=== PATIENT | male | born 1955 | race Hispanic/Latino ===

== ENCOUNTER 2018-09-07 18:02 | Inpatient (IN) | payer OTHER ==
[~2018-09-07] VITALS: Ht 165.1 cm; Wt 87.8 kg
[2018-09-07 18:35] LABS: BASOPHILS % (AUTO) 0.6 % (0.0-5.0); LYMPHOCYTES % (AUTO) 37.4 % (21.0-51.0); MEAN CORPUSCULAR HEMOGLOBIN 32.3 pg (27.0-33.0); MEAN CORPUSCULAR HGB CONC 33.4 g/dL (32.0-36.0); MEAN CORPUSCULAR VOLUME 96.7 fL (79-99); MONOCYTES % (AUTO) 11.4 % (3.0-13.0); NEUTROPHILS % (AUTO) 48.6 % (40.0-77.0); NUCLEATED RED BLOOD CELLS 0.1 % (0.0-0.19); PLATELET COUNT (AUTO) 110 K/uL (130-400); RED BLOOD CELL COUNT(AUTO) 3.41 MIL/uL (4.50-6.20); RED CELL DISTRIBUTION WIDTH 15.6 % (11.0-15.5); WHITE BLOOD COUNT (AUTO) 6.2 K/uL (4.8-10.8)
[2018-09-07 18:43] LABS: INR 1.48 (0.85-1.15); PARTIAL THROMBOPLASTIN TIME 30.3 SEC (26.3-35.5); PROTHROMBIN TIME 15.4 SEC (9.6-11.6)
[2018-09-07 18:46] LABS: ACETONE,BLOOD NEGATIVE (NEGATIVE)
[2018-09-07 18:51] LABS: CARBON DIOXIDE 26 mmol/L (21-32); CHLORIDE 101 mmol/L (101-111); CREATININE 0.7 mg/dL (0.5-1.5); GLOMERULAR FILTR. RATE CALC 122 mL/min (>60); GLUCOSE,RANDOM 116 mg/dL (70-105); POTASSIUM 3.6 mmol/L (3.5-5.1); SODIUM SERUM 136 mmol/L (136-145); UREA NITROGEN, BLOOD 5 mg/dL (7-18)
[2018-09-07 18:55] LABS: ALANINE AMINOTRANSFERASE 30 U/L (12-78); ALBUMIN 2.2 g/dL (3.5-5.0); ALCOHOL, BLOOD < 3 mg/dL (0-10); AMMONIA 53 umol/L (11-32); ASPARTATE AMINOTRANSFERASE 60 U/L (10-37); BILIRUBIN,TOTAL 2.4 mg/dL (0.2-1.0); TOTAL PROTEIN, SERUM 6.7 g/dL (6.0-8.3)
[2018-09-07 19:08] LABS: APPEARANCE,URINE Clear (CLEAR); BILIRUBIN,URINE Small (NEGATIVE); COLOR,URINE Dark Yellow (YELLOW); GLUCOSE, URINE (UA) Negative (NEGATIVE); KETONES,URINE 15 mg/dL (NEGATIVE); LEUKOCYTE ESTERASE ,URINE Trace (NEGATIVE); NITRATE,URINE Negative (NEGATIVE); OCCULT BLOOD,URINE Negative (NEGATIVE); PROTEIN,URINE Negative (NEGATIVE)
[2018-09-07 19:16] LABS: AMPHET/METH SCREEN,URINE NEGATIVE (NEGATIVE); BARBITURATE SCREEN, URINE NEGATIVE (NEGATIVE); BENZODIAZEPINES SCREEN,URINE NEGATIVE (NEGATIVE); CANNABINOID SCREEN,URINE NEGATIVE (NEGATIVE); COCAINE SCREEN,URINE NEGATIVE (NEGATIVE); OPIATE SCREEN,URINE NEGATIVE (NEGATIVE); PHENCYCLIDINE SCREEN,URINE NEGATIVE (NEGATIVE)
[2018-09-07 19:27] LABS: BACTERIA,URINE None Seen /HPF (None Seen); CALCIUM OXALATE CRYSTALS,UR Moderate /LPF (None Seen); MUCUS,URINE Moderate LPF (None Seen); RBC,URINE None Seen /HPF (0-1); SQUAMOUS EPITHELIAL CELL,UR 0-2 /HPF (0-2); WBC,URINE 0-1 /HPF (0-1)
[2018-09-07] MEDS ORDERED: ONDANSETRON HCL 4 MG/2 ML VIAL IV PRN (21:15)
[2018-09-07] MEDS ORDERED: ALBUTEROL SULFATE 0.083% 2.5 MG/3 ML INH IH PRN (21:15)
[2018-09-07 22:25] VITALS: BP 138/89
[2018-09-07] MEDS ORDERED: ALBUTEROL SULFATE 0.083% 2.5 MG/3 ML INH IH ONE (23:34)
[2018-09-07] MEDS ORDERED: ONDANSETRON HCL 4 MG/2 ML VIAL ONE (23:40)
[2018-09-07] MEDS ORDERED: MORPHINE SULFATE 4 MG/1ML SYG ONE (23:41)
[2018-09-08] VITALS (15 sets, daily range): BP systolic 98–115; BP diastolic 57–77
[2018-09-08] MEDS: FAMOTIDINE/PF 20 MG/2 ML VIAL IV SCH ×2 (08:36→21:06)
[2018-09-08] MEDS: FUROSEMIDE 10 MG/ML 4ML VIAL IVP SCH ×2 (08:36→21:06)
[2018-09-08] MEDS: ENOXAPARIN SODIUM 30 MG/0.3 ML SQ SCH (08:37)
[2018-09-08] MEDS: LACTULOSE 20 GM/30 ML UDCUP PO SCH ×2 (08:37→21:06)
[2018-09-08] MEDS ORDERED: LORAZEPAM 2 MG/ML 1 ML VIAL IVP PRN ×2 (12:15)
[2018-09-08] MEDS ORDERED: CHLORDIAZEPOXIDE HCL 25 MG CAP PO PRN ×2 (12:15)
[2018-09-08] MEDS ORDERED: ALBUMIN (HUMAN) 25% 200 ML IV ONE (18:00)
[2018-09-08] MEDS ORDERED: MORPHINE SULFATE 4 MG/1ML SYG ONE (21:09)
[2018-09-08] MEDS: MORPHINE SULFATE 2 MG/ML 1ML SYG IV PRN (21:12)
[2018-09-09 03:25] VITALS: BP 115/69
[2018-09-09 04:51] LABS: BASOPHILS % (AUTO) 0.5 % (0.0-5.0); EOSINOPHILS % (AUTO) 4.8 % (0.0-8.0); HEMATOCRIT 29.7 % (42-54); LYMPHOCYTES % (AUTO) 41.3 % (21.0-51.0); MEAN CORPUSCULAR HGB CONC 33.5 g/dL (32.0-36.0); MEAN CORPUSCULAR VOLUME 98.5 fL (79-99); MONOCYTES % (AUTO) 9.7 % (3.0-13.0); NEUTROPHILS % (AUTO) 43.7 % (40.0-77.0); NUCLEATED RED BLOOD CELLS 0.1 % (0.0-0.19); PLATELET COUNT (AUTO) 85 K/uL (130-400); RED BLOOD CELL COUNT(AUTO) 3.02 MIL/uL (4.50-6.20); RED CELL DISTRIBUTION WIDTH 15.9 % (11.0-15.5); WHITE BLOOD COUNT (AUTO) 3.9 K/uL (4.8-10.8)
[2018-09-09 05:09] LABS: CREATININE 0.7 mg/dL (0.5-1.5)
[2018-09-09 05:14] LABS: POTASSIUM 3.1 mmol/L (3.5-5.1)
[2018-09-09] MEDS ORDERED: BENZONATATE 100 MG CAPSULE PO PRN (07:45)
[2018-09-09] MEDS ORDERED: POTASSIUM CHLORIDE 10% ELIXIR 20 MEQ/15 ML UDCUP PO PRN (07:45)
[2018-09-09] MEDS ORDERED: POTASSIUM CHLORIDE 10MEQ/100ML 100 ML IV PRN (07:45)
[2018-09-09] MEDS ORDERED: LIDOCAINE HCL-MPF 1% 2ML VIAL IVP PRN (07:45)
[2018-09-09 08:00] VITALS: BP 117/71
[2018-09-09] MEDS: ENOXAPARIN SODIUM 30 MG/0.3 ML SQ SCH (09:00)
[2018-09-09 11:00] VITALS: BP 101/63
[2018-09-09] MEDS: FAMOTIDINE/PF 20 MG/2 ML VIAL IV SCH ×2 (11:12→20:35)
[2018-09-09] MEDS: FUROSEMIDE 10 MG/ML 4ML VIAL IVP SCH ×2 (11:12→20:35)
[2018-09-09] MEDS: POTASSIUM CHLORIDE 20 MEQ ERTAB PO PRN ×2 (11:12→20:36)
[2018-09-09] MEDS: LACTULOSE 20 GM/30 ML UDCUP PO SCH ×2 (11:12→20:35)
[2018-09-09 16:00] VITALS: BP 107/59
[2018-09-09 20:00] VITALS: BP 119/72
[2018-09-09] MEDS ORDERED: MORPHINE SULFATE 4 MG/1ML SYG ONE (20:49)
[2018-09-09] MEDS: MORPHINE SULFATE 2 MG/ML 1ML SYG IV PRN (20:50)
[2018-09-09 23:55] VITALS: BP 108/69
[2018-09-10 04:00] VITALS: BP 119/75
[2018-09-10 05:30] LABS: BASOPHILS % (AUTO) 0.5 % (0.0-5.0); EOSINOPHILS % (AUTO) 5.2 % (0.0-8.0); LYMPHOCYTES % (AUTO) 44.8 % (21.0-51.0); MEAN CORPUSCULAR HEMOGLOBIN 33.9 pg (27.0-33.0); MEAN CORPUSCULAR HGB CONC 34.4 g/dL (32.0-36.0); MEAN CORPUSCULAR VOLUME 98.8 fL (79-99); MONOCYTES % (AUTO) 12.2 % (3.0-13.0); NEUTROPHILS % (AUTO) 37.3 % (40.0-77.0); PLATELET COUNT (AUTO) 106 K/uL (130-400); RED BLOOD CELL COUNT(AUTO) 3.14 MIL/uL (4.50-6.20); RED CELL DISTRIBUTION WIDTH 15.7 % (11.0-15.5); WHITE BLOOD COUNT (AUTO) 4.5 K/uL (4.8-10.8)
[2018-09-10 05:42] LABS: INR 1.61 (0.85-1.15); PROTHROMBIN TIME 16.7 SEC (9.6-11.6)
[2018-09-10 05:45] LABS: CREATININE 0.8 mg/dL (0.5-1.5)
[2018-09-10 05:50] LABS: POTASSIUM 2.8 mmol/L (3.5-5.1)
[2018-09-10] MEDS: POTASSIUM CHLORIDE 20 MEQ ERTAB PO PRN ×4 (06:44→17:04)
[2018-09-10] MEDS ORDERED: POTASSIUM CHLORIDE 20MEQ/100ML 100 ML IV ONE (06:46)
[2018-09-10] MEDS ORDERED: LIDOCAINE HCL MPF 1% 5ML VIAL ONE (07:26)
[2018-09-10 07:31] LABS: HEPATITIS A ANTIBODY IGM Negative (Negative); HEPATITIS B CORE IGM Negative (Negative); HEPATITIS Bs ANTIGEN SCREEN P Negative (Negative)
[2018-09-10] MEDS: LACTULOSE 20 GM/30 ML UDCUP PO SCH (07:50)
[2018-09-10] MEDS: FAMOTIDINE/PF 20 MG/2 ML VIAL IV SCH (07:50)
[2018-09-10] MEDS: FUROSEMIDE 10 MG/ML 4ML VIAL IVP SCH (07:51)
[2018-09-10] MEDS: ENOXAPARIN SODIUM 30 MG/0.3 ML SQ SCH (07:54)
[2018-09-10 08:00] VITALS: BP 112/67
[2018-09-10] MEDS ORDERED: MORPHINE SULFATE 4 MG/1ML SYG ONE ×2 (10:08→10:13)
[2018-09-10] MEDS: MORPHINE SULFATE 2 MG/ML 1ML SYG IV PRN (11:09)
[2018-09-10 12:00] VITALS: BP 107/66
[2018-09-10 16:22] VITALS: BP 112/67
== END 2018-09-10 19:00 | disposition home or self-care (01) | DRG 641 ==
LOC: EDH 18:02 → EDHIP 18:03 → 4CH 21:11
PROVIDERS: ADMIT Internal Medicine; ATTEND Internal Medicine
PROC: 3E02340 Introduction of Influenza Vaccine into Muscle, Percutaneous Approach (ICD-10-PCS; 2018-09-07)
PROC: 0W9G30Z Drainage of Peritoneal Cavity with Drainage Device, Percutaneous Approach (ICD-10-PCS; principal; 2018-09-10)
DX: E87.70 Fluid overload, unspecified (principal); R18.8 Other ascites; R06.01 Orthopnea; Z23 Encounter for immunization
CPT/HCPCS: 36415; 49083; 71045; 76705; 80048; 80053; 80061; 80074; 80305; 81001; 82009; 82140; 84132; 85025; 85610; 85730; 93005; 93970; 94640; 94664; G0378; G0480; J1650; J1940; J2270; J2405; J3480; J3490; P9046; Q2035

== ENCOUNTER 2018-10-28 19:31 | Inpatient (IN) | payer OTHER ==
[~2018-10-28] VITALS: Ht 165.1 cm; Wt 92.1 kg
[2018-10-28 20:42] LABS: EOSINOPHILS % (AUTO) 7.6 % (0.0-8.0); HEMATOCRIT 33.8 % (42-54); LYMPHOCYTES % (AUTO) 36.8 % (21.0-51.0); MEAN CORPUSCULAR HEMOGLOBIN 31.1 pg (27.0-33.0); MEAN CORPUSCULAR HGB CONC 33.6 g/dL (32.0-36.0); MEAN CORPUSCULAR VOLUME 92.7 fL (79-99); MONOCYTES % (AUTO) 13.5 % (3.0-13.0); NEUTROPHILS % (AUTO) 41.1 % (40.0-77.0); NUCLEATED RED BLOOD CELLS 0.1 % (0.0-0.19); PLATELET COUNT (AUTO) 147 K/uL (130-400); RED BLOOD CELL COUNT(AUTO) 3.64 MIL/uL (4.50-6.20); RED CELL DISTRIBUTION WIDTH 17.4 % (11.0-15.5); WHITE BLOOD COUNT (AUTO) 5.2 K/uL (4.8-10.8)
[2018-10-28 20:49] LABS: INR 1.39 (0.85-1.15); PARTIAL THROMBOPLASTIN TIME 30.6 SEC (26.3-35.5); PROTHROMBIN TIME 14.5 SEC (9.6-11.6)
[2018-10-28 20:50] LABS: APPEARANCE,URINE Clear (CLEAR); BILIRUBIN,URINE Small (NEGATIVE); COLOR,URINE Dark Yellow (YELLOW); GLUCOSE, URINE (UA) Negative (NEGATIVE); KETONES,URINE Trace mg/dL (NEGATIVE); LEUKOCYTE ESTERASE ,URINE Trace (NEGATIVE); NITRATE,URINE Negative (NEGATIVE); OCCULT BLOOD,URINE Negative (NEGATIVE); PROTEIN,URINE Negative (NEGATIVE)
[2018-10-28 20:51] LABS: CARBON DIOXIDE 28 mmol/L (21-32); CHLORIDE 100 mmol/L (101-111); CREATININE 0.9 mg/dL (0.5-1.5); GLOMERULAR FILTR. RATE CALC 91 mL/min (>60); GLUCOSE,RANDOM 114 mg/dL (70-105); POTASSIUM 3.7 mmol/L (3.5-5.1); SODIUM SERUM 135 mmol/L (136-145); UREA NITROGEN, BLOOD 12 mg/dL (7-18)
[2018-10-28 20:57] LABS: AMPHET/METH SCREEN,URINE NEGATIVE (NEGATIVE); BARBITURATE SCREEN, URINE NEGATIVE (NEGATIVE); BENZODIAZEPINES SCREEN,URINE NEGATIVE (NEGATIVE); CANNABINOID SCREEN,URINE NEGATIVE (NEGATIVE); COCAINE SCREEN,URINE NEGATIVE (NEGATIVE); OPIATE SCREEN,URINE NEGATIVE (NEGATIVE); PHENCYCLIDINE SCREEN,URINE NEGATIVE (NEGATIVE)
[2018-10-28 20:57] LABS: ALANINE AMINOTRANSFERASE 22 U/L (12-78); ALBUMIN 2.2 g/dL (3.5-5.0); ALCOHOL, BLOOD < 3 mg/dL (0-10); ASPARTATE AMINOTRANSFERASE 52 U/L (10-37); BILIRUBIN,TOTAL 2.2 mg/dL (0.2-1.0); LIPASE 335 U/L (114-286); TOTAL PROTEIN, SERUM 7.1 g/dL (6.0-8.3)
[2018-10-28 21:00] LABS: B-TYPE NATRIURETIC PEPTIDE 24 pg/mL (0-100)
[2018-10-28 21:07] LABS: BACTERIA,URINE Few /HPF (None Seen); MUCUS,URINE Many LPF (None Seen); RBC,URINE None Seen /HPF (0-1); WBC,URINE 0-1 /HPF (0-1)
[2018-10-29] VITALS (11 sets, daily range): BP systolic 85–120; BP diastolic 48–78
[2018-10-29] MEDS ORDERED: ACETAMINOPHEN 325 MG TAB PO PRN
[2018-10-29] MEDS ORDERED: MORPHINE SULFATE 2 MG/ML 1ML SYG IV PRN
[2018-10-29] MEDS ORDERED: ONDANSETRON HCL 4 MG/2 ML VIAL IV PRN
[2018-10-29] MEDS: ALBUTEROL SULFATE 0.083% 2.5 MG/3 ML INH IH SCH ×4 (00:16→18:50)
--- NOTE | 2018-10-29 02:35 | NUR ---
ADMISSION. PT ADMITTED FROM ER INTO ROOM 418. PT AWAKE, ALERT AND RESPONSIVE. NO C/O SOB, PAIN OR DISCOMFORT AT THIS TIME. PT ABLE TO AMBULATE FROM STRETCHER INTO BED, AT BEDSIDE. PT AND ORIENTED TO ROOM, CALL AMARO WITHIN REACH, BED IN LOWEST POSITION. Addendum: 10/29/18 at 0327 by LEIGH ANN GUILLORY RN Amended: Links added.
[2018-10-29 07:40] LABS: INR 1.43 (0.85-1.15); PARTIAL THROMBOPLASTIN TIME 30.9 SEC (26.3-35.5); PROTHROMBIN TIME 14.9 SEC (9.6-11.6)
[2018-10-29] MEDS: ENOXAPARIN SODIUM 40 MG/0.4 ML SYRINGE SQ SCH ×2 (08:34→20:55)
[2018-10-29] MEDS: FUROSEMIDE 10 MG/ML 4ML VIAL IVP SCH ×2 (08:37→20:45)
[2018-10-29] MEDS: FAMOTIDINE/PF 20 MG/2 ML VIAL IV SCH ×2 (08:37→20:46)
[2018-10-29] MEDS ORDERED: LIDOCAINE HCL 1% 20 ML VIAL ONE (09:14)
[2018-10-29] MEDS ORDERED: ALBUMIN (HUMAN) 25% 200 ML IV ONE (09:56)
--- NOTE | 2018-10-29 10:30 | NUR ---
U/S GD PARACENTESIS PROCEDURE PERFORMED BY DR Kristen SANTOS. PUNCTURE SITE RLQ AND TOTAL REMOVED 14 LITERS OF CLOUDY YELLOW FLUID. END OF PROCEDURE AT 1015. CATHETER REMOVED AND DRESSING APPLIED. REPORT GIVEN TO Marvin NUNN RN AND PATIENT TRANSPORTED TO [facility] VIA BED AT 1030.
[2018-10-29] MEDS ORDERED: METHYLPREDNISOLONE SOD SUCC 125MG/2ML VIAL ONE (17:35)
[2018-10-30] VITALS (7 sets, daily range): BP systolic 95–114; BP diastolic 56–67
[2018-10-30] MEDS: ALBUTEROL SULFATE 0.083% 2.5 MG/3 ML INH IH SCH ×4 (00:03→19:27)
[2018-10-30 04:50] LABS: BASOPHILS % (AUTO) 1.1 % (0.0-5.0); EOSINOPHILS % (AUTO) 7.3 % (0.0-8.0); LYMPHOCYTES % (AUTO) 47.3 % (21.0-51.0); MEAN CORPUSCULAR HEMOGLOBIN 31.3 pg (27.0-33.0); MEAN CORPUSCULAR HGB CONC 33.5 g/dL (32.0-36.0); MEAN CORPUSCULAR VOLUME 93.3 fL (79-99); MONOCYTES % (AUTO) 10.8 % (3.0-13.0); NEUTROPHILS % (AUTO) 33.5 % (40.0-77.0); PLATELET COUNT (AUTO) 129 K/uL (130-400); RED BLOOD CELL COUNT(AUTO) 3.11 MIL/uL (4.50-6.20); RED CELL DISTRIBUTION WIDTH 17.8 % (11.0-15.5)
[2018-10-30 05:02] LABS: CREATININE 0.9 mg/dL (0.5-1.5); POTASSIUM 3.6 mmol/L (3.5-5.1)
[2018-10-30] MEDS: ENOXAPARIN SODIUM 40 MG/0.4 ML SYRINGE SQ SCH (09:00)
[2018-10-30] MEDS: FUROSEMIDE 10 MG/ML 4ML VIAL IVP SCH ×2 (09:00→20:50)
[2018-10-30] MEDS: FAMOTIDINE/PF 20 MG/2 ML VIAL IV SCH ×2 (10:22→20:49)
--- NOTE | 2018-10-30 17:15 | NUR ---
NINA WOOD DONE WITH FAMILY EMEMBER AT B/SIDE, [place] CITIZEN SPEAKING, AAO X3, STATES LIVES ALONE, NO DME, PLAN IS HOME, ASKED PT IAM [place], [facility] 'ZACH DAMICO DECLINED ME BECAUSE I DO NOT HAVE MEDICIAD' CM TO FOLLOW NEEDED, ANTICIPATE DC HOME Addendum: 10/30/18 at 2025 by SMITH PARKS RN CM Amended: Links added.
[2018-10-31] VITALS (9 sets, daily range): BP systolic 93–110; BP diastolic 57–69
[2018-10-31] MEDS: ALBUTEROL SULFATE 0.083% 2.5 MG/3 ML INH IH SCH ×3 (00:18→13:45)
[2018-10-31 04:32] LABS: HEMATOCRIT 29.3 % (42-54); MEAN CORPUSCULAR HEMOGLOBIN 31.8 pg (27.0-33.0); MEAN CORPUSCULAR HGB CONC 33.9 g/dL (32.0-36.0); MEAN CORPUSCULAR VOLUME 93.9 fL (79-99); NUCLEATED RED BLOOD CELLS 0.1 % (0.0-0.19); PLATELET COUNT (AUTO) 121 K/uL (130-400); RED BLOOD CELL COUNT(AUTO) 3.12 MIL/uL (4.50-6.20); RED CELL DISTRIBUTION WIDTH 17.6 % (11.0-15.5); WHITE BLOOD COUNT (AUTO) 4.8 K/uL (4.8-10.8)
[2018-10-31 04:43] LABS: INR 1.51 (0.85-1.15); PARTIAL THROMBOPLASTIN TIME 31.5 SEC (26.3-35.5); PROTHROMBIN TIME 15.7 SEC (9.6-11.6)
[2018-10-31 04:44] LABS: BILIRUBIN,TOTAL 1.2 mg/dL (0.2-1.0); CREATININE 0.9 mg/dL (0.5-1.5); POTASSIUM 3.6 mmol/L (3.5-5.1); TOTAL PROTEIN, SERUM 5.7 g/dL (6.0-8.3)
[2018-10-31] MEDS: FAMOTIDINE/PF 20 MG/2 ML VIAL IV SCH (08:44)
[2018-10-31] MEDS: FUROSEMIDE 10 MG/ML 4ML VIAL IVP SCH (08:44)
[2018-10-31] MEDS ORDERED: ENOXAPARIN SODIUM 30 MG/0.3 ML SQ SCH (09:00)
[2018-10-31] MEDS ORDERED: ALBUMIN (HUMAN) 25% 200 ML IV SCH (12:15)
--- NOTE | 2018-10-31 12:15 | NUR ---
U/S GD PARACENTESIS PROCEDURE PERFORMED BY DR Kristen SANTOS. PUNCTURE SITE RLQ AND TOTAL REMOVED 6 LITERS OF CLOUDY YELLOW FLUID. END OF PROCEDURE AT 1015. CATHETER REMOVED AND DRESSING APPLIED. REPORT GIVEN TO Shannon VU RN AND PATIENT TRANSPORTED TO [facility] VIA BED AT 1215. SPECIMEN SENT TO LAB
[2018-10-31 12:56] LABS: APPEARANCE BODY FLUID CLEAR (CLEAR); COLOR,BODY FLUID YELLOW (LT YELLOW); SPECIMENTYPE,BODY FLUID ASCITES; TOTAL VOLUME,BODY FLUID 6000 mL
[2018-10-31 12:57] LABS: BODY FLUID RBC 209 /cu. mm.; BODY FLUID WBC 143 /cu. mm.
[2018-10-31] MEDS ORDERED: LACTULOSE 20 GM/30 ML UDCUP PO SCH (13:00)
[2018-10-31 13:07] LABS: BF LYMPHOCYTE 14 %; BF MESOTHELIAL 2 %; BF MONOCYTE 15 %
[2018-10-31] MEDS ORDERED: LACT10SO32 PO (16:00)
--- NOTE | 2018-10-31 16:22 | NUR ---
As per admission database, pt rec'd flu shot in Aug 2018. Addendum: 10/31/18 at 1628 by TY VU RN RN Amended: Links added.
--- NOTE | 2018-10-31 17:15 | NUR ---
Discharge teaching completed with pt and family at side. Emphasis on dx, s/s to monitor for, when to seek emergency care vs dial 911. Emphasized importance of establishing self with a PCP for general care; needs to be seen within 3 days. Also emphasized importance of requesting referral to GI for care of cirrhosis. Discussed fall precautions, bleeding precautions. Instructed pt to keep dressing to ruq paracentesis site clean, dry, and intact; may remove in 72 hours. Written rx for lactulose given to pt. Discussed purpose, route, dose, and frequency of treatment, as well as side effects, adverse effects, and importance of taking medication exactly as prescribed PIV removed, tip intact. Dressed with sterile 2x2 and tape after hemostasis achieved. Pt wheeled to front lobby by [facility] staff for transport home via private vehicle. Pt in stable condition at time of discharge.
== END 2018-10-31 17:25 | disposition home or self-care (01) | DRG 432 ==
LOC: EDH 19:31 → OBSVTOIN 19:32 → EDHIP 19:32 → 4CH 10-29 01:49
PROVIDERS: ADMIT Internal Medicine; ATTEND Internal Medicine
PROC: 0W9G3ZZ Drainage of Peritoneal Cavity, Percutaneous Approach (ICD-10-PCS; principal; 2018-10-29)
PROC: 0W9G3ZZ Drainage of Peritoneal Cavity, Percutaneous Approach (ICD-10-PCS; 2018-10-31)
DX: K74.60 Unspecified cirrhosis of liver (principal); E43 Unspecified severe protein-calorie malnutrition; R18.8 Other ascites; E87.1 Hypo-osmolality and hyponatremia; Z68.33 Body mass index [BMI] 33.0-33.9, adult
CPT/HCPCS: 36415; 49083; 71045; 80048; 80053; 80305; 81001; 83690; 83880; 84484; 85025; 85027; 85610; 85730; 87071; 87205; 89051; 93005; 93970; 94640; 94664; 96365; G0378; G0480; J1650; J1940; J2930; J3490; P9046

== ENCOUNTER 2018-11-20 14:23 | Inpatient (IN) | payer OTHER ==
[~2018-11-20] VITALS: Ht 165.1 cm; Wt 94.6 kg
[~2018-11-20 14:23] MED LIST: LACT10SO32 PO
[2018-11-20 15:12] LABS: APPEARANCE,URINE Clear (CLEAR); BILIRUBIN,URINE Negative (NEGATIVE); COLOR,URINE Yellow (YELLOW); GLUCOSE, URINE (UA) Negative (NEGATIVE); KETONES,URINE Negative (NEGATIVE); LEUKOCYTE ESTERASE ,URINE Negative (NEGATIVE); NITRATE,URINE Negative (NEGATIVE); OCCULT BLOOD,URINE Negative (NEGATIVE); PH,URINE 5.5 (5.0-8.0); PROTEIN,URINE Negative (NEGATIVE)
[2018-11-20 15:31] LABS: EOSINOPHILS % (AUTO) 7.6 % (0.0-8.0); LYMPHOCYTES % (AUTO) 32.9 % (21.0-51.0); MEAN CORPUSCULAR HGB CONC 33.4 g/dL (32.0-36.0); MEAN CORPUSCULAR VOLUME 92.9 fL (79-99); MONOCYTES % (AUTO) 8.1 % (3.0-13.0); NEUTROPHILS % (AUTO) 50.4 % (40.0-77.0); NUCLEATED RED BLOOD CELLS 0.1 % (0.0-0.19); PLATELET COUNT (AUTO) 153 K/uL (130-400); RED BLOOD CELL COUNT(AUTO) 3.98 MIL/uL (4.50-6.20); RED CELL DISTRIBUTION WIDTH 17.8 % (11.0-15.5); WHITE BLOOD COUNT (AUTO) 5.6 K/uL (4.8-10.8)
[2018-11-20 15:44] LABS: INR 1.43 (0.85-1.15); PARTIAL THROMBOPLASTIN TIME 34.5 SEC (26.3-35.5); PROTHROMBIN TIME 14.9 SEC (9.6-11.6)
[2018-11-20 15:45] LABS: CREATININE 0.8 mg/dL (0.5-1.5); POTASSIUM 3.9 mmol/L (3.5-5.1)
[2018-11-20 15:48] LABS: ALBUMIN 2.4 g/dL (3.5-5.0); BILIRUBIN,TOTAL 2.3 mg/dL (0.2-1.0); TOTAL PROTEIN, SERUM 7.7 g/dL (6.0-8.3)
[2018-11-20] MEDS ORDERED: ONDANSETRON HCL 4 MG/2 ML VIAL IV PRN (18:45)
[2018-11-20] MEDS ORDERED: ACETAMINOPHEN 325 MG TAB PO PRN ×2 (18:45)
[2018-11-20] MEDS: LACTULOSE 20 GM/30 ML UDCUP PO SCH (21:00)
[2018-11-20] MEDS: FAMOTIDINE 20MG TAB 20 MG TAB PO SCH (21:00)
[2018-11-20] MEDS ORDERED: MAGNESIUM 2GM PREMIX 50ML 50 ML IV ONE (21:29)
[2018-11-20] MEDS ORDERED: LACTULOSE 20 GM/30 ML UDCUP ONE (21:37)
[2018-11-20] MEDS ORDERED: FUROSEMIDE 10 MG/ML 4ML VIAL IV STA (22:18)
[2018-11-20] MEDS ORDERED: FUROSEMIDE 10 MG/ML 4ML VIAL ONE (22:29)
[2018-11-21] VITALS (13 sets, daily range): BP systolic 92–136; BP diastolic 54–74
--- NOTE | 2018-11-21 01:15 | NUR ---
ADMIT PT ADMITTED TO ROOM 328,AAOX3. STILL WITH NOTED SLIGHT SOB WITH EXERTION. TENSE ASCITES OF ABDOMINAL REGION AND BLE SWELLING ABOUT 3+. ADMISSION CARE DONE. ADMISSION DATA BASE COMPLETED. OREINTED TO ROOM AND UNIT. INSTRUCTED TO BE NPO AT THIS TIME FOR PARACENTESIS BY IR TODAY. IN FOR MORE CARE AND MANAGEMENT.
--- NOTE | 2018-11-21 01:40 | NUR ---
CONSENT HANDOUT ABOUT PARACENTESIS GIVEN TO PT. PT VERBALIZES UNDERSTANDING OF PROCEDURE ORDERED. CONSENT SIGNED BY PT, WITNESSED BY STUNT MAN. KEPT COMFORTABLE IN BED WITH HOB ELEVATED. WILL MONITOR PT. CALL LIGHT WITHIN REACH.
--- NOTE | 2018-11-21 03:24 | NUR ---
ABDOMEN BASE LINE ABDOMINAL GIRTH [id number]=[id number].
[2018-11-21 04:34] LABS: BASOPHILS % (AUTO) 0.7 % (0.0-5.0); HEMATOCRIT 29.7 % (42-54); LYMPHOCYTES % (AUTO) 39.9 % (21.0-51.0); MEAN CORPUSCULAR HEMOGLOBIN 31.6 pg (27.0-33.0); MEAN CORPUSCULAR HGB CONC 34.3 g/dL (32.0-36.0); MEAN CORPUSCULAR VOLUME 92.2 fL (79-99); MONOCYTES % (AUTO) 9.5 % (3.0-13.0); NEUTROPHILS % (AUTO) 41.9 % (40.0-77.0); NUCLEATED RED BLOOD CELLS 0.2 % (0.0-0.19); PLATELET COUNT (AUTO) 147 K/uL (130-400); RED BLOOD CELL COUNT(AUTO) 3.22 MIL/uL (4.50-6.20); RED CELL DISTRIBUTION WIDTH 17.5 % (11.0-15.5); WHITE BLOOD COUNT (AUTO) 5.7 K/uL (4.8-10.8)
[2018-11-21 04:40] LABS: INR 1.49 (0.85-1.15); PARTIAL THROMBOPLASTIN TIME 35.2 SEC (26.3-35.5); PROTHROMBIN TIME 15.5 SEC (9.6-11.6)
[2018-11-21 04:49] LABS: BILIRUBIN,TOTAL 2.4 mg/dL (0.2-1.0); CREATININE 0.8 mg/dL (0.5-1.5); MAGNESIUM 1.8 mg/dL (1.80-2.40); POTASSIUM 3.1 mmol/L (3.5-5.1); TOTAL PROTEIN, SERUM 6.4 g/dL (6.0-8.3)
[2018-11-21] MEDS: MAGNESIUM 2GM PREMIX 50ML 50 ML IV PRN (06:39)
--- NOTE | 2018-11-21 06:39 | NUR ---
MG PT'S MAGNESIUM=1.8 RE-CHECK. COVERAGE STARTED WITH MAGNESIUM IV. ENDORSING TO AM SHIFT FOR COVERAGE OF POTASSIUM. FOR MORE CARE.
[2018-11-21] MEDS: LACTULOSE 20 GM/30 ML UDCUP PO SCH (08:03)
[2018-11-21] MEDS: FAMOTIDINE 20MG TAB 20 MG TAB PO SCH ×2 (08:03→20:07)
[2018-11-21] MEDS: FUROSEMIDE 10 MG/ML 4ML VIAL IV SCH ×2 (08:13→20:07)
[2018-11-21] MEDS: POTASSIUM CHLORIDE 20MEQ/100ML 100 ML IV PRN ×2 (09:07→11:11)
[2018-11-21] MEDS: LIDOCAINE HCL-MPF 1% 2ML VIAL IVP PRN ×2 (09:07→11:11)
--- NOTE | 2018-11-21 13:52 | NUR ---
dcp pt lives alone, daughter Aixa Baeza [phone] and pts son live close by and assist as needed. Pt is semi independent, no DME or in home care services. Seen at [facility]. Pt denies dc needs, plan is home Addendum: 11/21/18 at 1355 by ASIA ARMSTRONG SS Amended: Links added.
--- NOTE | 2018-11-21 15:15 | NUR ---
U/S GD PARACENTESIS PROCEDURE PERFORMED BY DR Fan FRAZIER. PUNCTURE SITE RLQ AND PATIENT TOLERATED PROCEDURE WELL. TOTAL REMOVED 12.8 LITERS OF CLOUDY YELLOW FLUID. END OF PROCEDURE AT 1440. CATHETER REMOVED AND DRESSING APPLIED. NO BLEEDING NOTED. REPORT GIVEN TO Kristian GAINES RN AND PATIENT TRANSPORTED TO [facility] VIA W/C AT 1515. AAO X3 WITH NO C/O PAIN. ALBUMIN 25% IV INFUSION ORDERED PER PROTOCOL.
[2018-11-21] MEDS ORDERED: LIDOCAINE HCL 1% 20 ML VIAL ONE (15:37)
[2018-11-21] MEDS ORDERED: ALBUMIN (HUMAN) 25% 200 ML IV ONE (17:00)
[2018-11-21 17:27] LABS: CREATININE 0.7 mg/dL (0.5-1.5); POTASSIUM 3.3 mmol/L (3.5-5.1)
--- NOTE | 2018-11-21 20:00 | NUR ---
ASSESS SHIFT ASSESSMENT DONE, PLEASE REFER TO CHART. DUE MEDS ADMINISTERED,TYLENOL PO GIVEN FOR PAINS. PT TOLERATED MEDS WELL. KEPT RESTED AND COMFORTABLE IN BED WITH HOB ELEVATED. CALL LIGHT WITHIN REACH. WILL RE-ASSESS PT. Addendum: 11/22/18 at 0459 by HU ONEAL RN RN Amended: Links added.
[2018-11-21] MEDS: POTASSIUM CHLORIDE 20 MEQ ERTAB PO PRN (20:13)
[2018-11-21] MEDS ORDERED: LEVOFLOXACIN 500 MG/D5W 100 ML 100 ML IV SCH (21:00)
--- NOTE | 2018-11-21 22:00 | NUR ---
ROUNDS PT FAIRLY ASLEEP WITH RESPIRATIONS EVEN AND UNLABORED. NO NOTED DISTRESS. KEPT UNDISTURBED FOR NOW.
[2018-11-22 00:20] VITALS: BP 92/53
--- NOTE | 2018-11-22 02:00 | NUR ---
ROUNDS PT RESTING WELL. NO CONCERNS VERBALIZED. KEPT COMFORTABLE. CALL LIGHT WITHIN REACH. WILL MONITOR PT. FAMILY IN ROOM.
[2018-11-22 04:23] LABS: BASOPHILS % (AUTO) 0.7 % (0.0-5.0); CREATININE 0.8 mg/dL (0.5-1.5); EOSINOPHILS % (AUTO) 7.6 % (0.0-8.0); HEMATOCRIT 28.9 % (42-54); LYMPHOCYTES % (AUTO) 44.9 % (21.0-51.0); MEAN CORPUSCULAR HEMOGLOBIN 31.8 pg (27.0-33.0); MEAN CORPUSCULAR VOLUME 93.3 fL (79-99); MONOCYTES % (AUTO) 10.2 % (3.0-13.0); NEUTROPHILS % (AUTO) 36.6 % (40.0-77.0); NUCLEATED RED BLOOD CELLS 0.1 % (0.0-0.19); PLATELET COUNT (AUTO) 117 K/uL (130-400); POTASSIUM 3.2 mmol/L (3.5-5.1); RED BLOOD CELL COUNT(AUTO) 3.09 MIL/uL (4.50-6.20); RED CELL DISTRIBUTION WIDTH 17.3 % (11.0-15.5); WHITE BLOOD COUNT (AUTO) 4.6 K/uL (4.8-10.8)
[2018-11-22 04:24] LABS: INR 1.65 (0.85-1.15); PROTHROMBIN TIME 17.2 SEC (9.6-11.6)
[2018-11-22 04:32] VITALS: BP 85/59
[2018-11-22] MEDS: POTASSIUM CHLORIDE 20 MEQ ERTAB PO PRN (05:57)
--- NOTE | 2018-11-22 06:00 | NUR ---
GI GI LAB CALLED TO PLACE MONITOR IN THE ROOM. CRASH CART MONITOR PLACED IN THE ROOM. CARA FROM GI LAB CAME UP AND INFORMS MANUFACTURER AGENT THAT PT IS BEING TAKEN DOWN TO GI LAB FOR PROCEDURE DR VAZQUEZ IS ALREADY ON HIS WAY. PT TAKEN DOWN FOR PROCEDURE. Addendum: 11/22/18 at 0654 by HU ONEAL RN RN ERROR ENTRY
[2018-11-22] MEDS: MAGNESIUM 2GM PREMIX 50ML 50 ML IV PRN (06:08)
[2018-11-22 07:00] VITALS: BP 93/57
[2018-11-22] MEDS: FUROSEMIDE 10 MG/ML 4ML VIAL IV SCH (08:29)
--- NOTE | 2018-11-22 08:30 | NUR ---
WILL HOLD LASIX, PT BP HAS BEEN LOW, LAST BP IS 93/57
[2018-11-22] MEDS: POTASSIUM CHLORIDE 10% ELIXIR 20 MEQ/15 ML UDCUP PO PRN ×2 (08:44→13:35)
[2018-11-22] MEDS: FAMOTIDINE 20MG TAB 20 MG TAB PO SCH (08:44)
[2018-11-22] MEDS ORDERED: LACTULOSE 20 GM/30 ML UDCUP PO SCH (09:00)
[2018-11-22 11:00] VITALS: BP 97/61
== END 2018-11-22 18:30 | disposition home or self-care (01) | DRG 434 ==
LOC: EDH 14:23 → OBSVTOIN 14:24 → EDHIP 14:24 → 3DH 11-21 00:52
PROVIDERS: ADMIT Internal Medicine; ATTEND Internal Medicine
PROC: 0W9G3ZZ Drainage of Peritoneal Cavity, Percutaneous Approach (ICD-10-PCS; principal; 2018-11-21)
DX: K70.31 Alcoholic cirrhosis of liver with ascites (principal)
CPT/HCPCS: 36415; 49083; 71045; 80048; 80053; 81003; 82140; 82550; 83735; 83880; 84484; 85025; 85610; 85730; 87040; 93005; G0378; J1940; J1956; J3475; J3480; J3490; P9046

== ENCOUNTER 2018-12-31 22:41 | Inpatient (IN) | payer MEDICAID ==
[~2018-12-31] VITALS: Ht 165.1 cm; Wt 81.1 kg
--- NOTE | 2018-12-31 01:20 | NUR ---
Admission note: Received to floor per stretcher. Can amb with guarding. Continuously attached to O2 at 3LPM via NC with OSat at 95%. Placed in bed on Hi-samuel's for easy breathing and comfort.Pt. fully awake and responsive. VS checked and recorded. Assessment done. Seen and examined by PRINTER SLOTTER FEEDER,Chaparro. Orders carried out. Plan of care initiated. Consent signed for Paracentesis. Daughter and was with the patient. Gilbert to room and use of call light. Policies and procedures explained. Verbalized understanding. Monitored and observed for any unusualities. Cared for and needs attended. Distress / discomfort not noted.
[2018-12-31 23:42] LABS: EOSINOPHILS % (AUTO) 4.5 % (0.0-8.0); HEMATOCRIT 33.7 % (42-54); LYMPHOCYTES % (AUTO) 35.2 % (21.0-51.0); MEAN CORPUSCULAR HEMOGLOBIN 32.2 pg (27.0-33.0); MEAN CORPUSCULAR HGB CONC 34.2 g/dL (32.0-36.0); MONOCYTES % (AUTO) 11.6 % (3.0-13.0); NEUTROPHILS % (AUTO) 47.7 % (40.0-77.0); NUCLEATED RED BLOOD CELLS 0.1 % (0.0-0.19); PLATELET COUNT (AUTO) 170 K/uL (130-400); RED BLOOD CELL COUNT(AUTO) 3.59 MIL/uL (4.50-6.20); RED CELL DISTRIBUTION WIDTH 15.3 % (11.0-15.5); WHITE BLOOD COUNT (AUTO) 6.4 K/uL (4.8-10.8)
[2018-12-31 23:56] LABS: INR 1.48 (0.85-1.15); PARTIAL THROMBOPLASTIN TIME 33.1 SEC (26.3-35.5); PROTHROMBIN TIME 15.4 SEC (9.6-11.6)
[2019-01-01] VITALS (14 sets, daily range): BP systolic 83–133; BP diastolic 50–87
[2019-01-01] MEDS ORDERED: ONDANSETRON HCL 4 MG/2 ML VIAL ONE (00:01)
[2019-01-01 00:12] LABS: B-TYPE NATRIURETIC PEPTIDE 17 pg/mL (0-100)
[2019-01-01 00:14] LABS: CREATININE 0.7 mg/dL (0.5-1.5); POTASSIUM 3.6 mmol/L (3.5-5.1)
[2019-01-01 00:18] LABS: ALBUMIN 2.2 g/dL (3.5-5.0); BILIRUBIN,TOTAL 1.7 mg/dL (0.2-1.0); TOTAL PROTEIN, SERUM 6.6 g/dL (6.0-8.3)
[2019-01-01] MEDS ORDERED: IBUPROFEN 200 MG TAB PO PRN ×2 (01:00)
[2019-01-01] MEDS ORDERED: ONDANSETRON HCL 4 MG/2 ML VIAL IV PRN (01:00)
[2019-01-01] MEDS ORDERED: NITROGLYCERIN 0.4 MG SL TAB SL PRN (01:00)
[2019-01-01] MEDS ORDERED: LACT10SO PO (01:33)
[2019-01-01] MEDS ORDERED: FURO20TA6 PO (01:33)
[2019-01-01] MEDS ORDERED: GLUCAGON 1MG KIT 1 MG ML IM PRN (01:45)
[2019-01-01] MEDS ORDERED: ALBUMIN (HUMAN) 25% 100 ML IV ONE ×2 (01:45→02:06)
[2019-01-01] MEDS ORDERED: DEXTROSE 50%-WATER 50 ML DISP.SYRIN IV PRN (01:45)
[2019-01-01] MEDS ORDERED: SPIR25TA6 PO (01:53)
[2019-01-01] MEDS ORDERED: THIA100T91 PO (01:53)
[2019-01-01] MEDS ORDERED: FOLI1TAB15 PO (01:53)
[2019-01-01] MEDS ORDERED: FUROSEMIDE 10 MG/ML 4ML VIAL IV SCH (02:00)
[2019-01-01] MEDS ORDERED: FUROSEMIDE 10 MG/ML 4ML VIAL ONE (02:03)
[2019-01-01 02:35] LABS: HEMOGLOBIN A1C 5.4 % (4.0-6.0)
[2019-01-01 03:08] LABS: APPEARANCE,URINE Clear (CLEAR); BILIRUBIN,URINE Negative (NEGATIVE); COLOR,URINE Yellow (YELLOW); GLUCOSE, URINE (UA) Negative (NEGATIVE); KETONES,URINE Negative (NEGATIVE); LEUKOCYTE ESTERASE ,URINE Negative (NEGATIVE); NITRATE,URINE Negative (NEGATIVE); OCCULT BLOOD,URINE Negative (NEGATIVE); PROTEIN,URINE Negative (NEGATIVE)
[2019-01-01 04:07] LABS: BASOPHILS % (AUTO) 0.7 % (0.0-5.0); EOSINOPHILS % (AUTO) 2.9 % (0.0-8.0); HEMATOCRIT 33.5 % (42-54); LYMPHOCYTES % (AUTO) 30.5 % (21.0-51.0); MEAN CORPUSCULAR HEMOGLOBIN 33.1 pg (27.0-33.0); MEAN CORPUSCULAR HGB CONC 34.7 g/dL (32.0-36.0); MEAN CORPUSCULAR VOLUME 95.4 fL (79-99); MONOCYTES % (AUTO) 11.1 % (3.0-13.0); NEUTROPHILS % (AUTO) 54.8 % (40.0-77.0); NUCLEATED RED BLOOD CELLS 0.1 % (0.0-0.19); PLATELET COUNT (AUTO) 160 K/uL (130-400); RED BLOOD CELL COUNT(AUTO) 3.51 MIL/uL (4.50-6.20); RED CELL DISTRIBUTION WIDTH 15.2 % (11.0-15.5); WHITE BLOOD COUNT (AUTO) 6.3 K/uL (4.8-10.8)
[2019-01-01 04:19] LABS: INR 1.48 (0.85-1.15); PARTIAL THROMBOPLASTIN TIME 33.8 SEC (26.3-35.5); PROTHROMBIN TIME 15.4 SEC (9.6-11.6)
[2019-01-01 04:32] LABS: ALBUMIN 2.5 g/dL (3.5-5.0); BILIRUBIN,TOTAL 1.9 mg/dL (0.2-1.0); CREATININE 0.7 mg/dL (0.5-1.5); MAGNESIUM 1.6 mg/dL (1.80-2.40); POTASSIUM 3.4 mmol/L (3.5-5.1); TOTAL PROTEIN, SERUM 7.1 g/dL (6.0-8.3)
[2019-01-01] MEDS: INSULIN HUMULIN R 100 UNIT/ML 3ML SQ SCH ×3 (06:12→20:30)
--- NOTE | 2019-01-01 10:15 | NUR ---
U/S GD PARACENTESIS PROCEDURE PERFORMED BY DR Fan FRAZIER. PUNCTURE SITE RLQ. TOTAL REMOVED 15 LITERS OF CLEAR YELLOW FLUID. ALBUMIN 25% 50 GRAMS ORDERED PER PROTOCOL. END OF PROCEDURE AT 0955. CATHETER REMOVED AND DRESSING APPLIED. NO BLEEDING NOTED. REPORT GIVEN TO Shannon HAYOWOD RN AND PATIENT TRANSPORTED TO [facility] VIA BED AT 1015. AAO X3 WITH NO C/O DISCOMFORT.
[2019-01-01] MEDS: THIAMINE HCL 100 MG TABLET PO SCH (10:27)
[2019-01-01] MEDS: LACTULOSE 20 GM/30 ML UDCUP PO SCH ×3 (10:27→20:30)
[2019-01-01] MEDS: FAMOTIDINE 20MG TAB 20 MG TAB PO SCH ×2 (10:27→20:30)
[2019-01-01] MEDS: FOLIC ACID 1 MG TABLET PO SCH (10:27)
[2019-01-01] MEDS: SPIRONOLACTONE 25 MG TAB PO SCH ×4 (10:27→20:31)
[2019-01-01] MEDS: FUROSEMIDE 20 MG TABLET PO SCH ×2 (10:27→20:30)
[2019-01-01] MEDS ORDERED: ALBUMIN (HUMAN) 25% 200 ML IV SCH (10:30)
--- NOTE | 2019-01-01 11:00 | NUR ---
S/P PARACENTESIS PATIENT RECEIVED FROM RADIOLOGY S/P PARACENTSIS. ORDERS RECEIVED AND CARRIED OUT. DIET ORDERED. VITALS STABLE.A FEBRILE. AWARE. NEW ORDERS RECEIVED AND CARRIED OUT. MEDICATED PER MD ORDERS WITH HYDROCODONE FOR PAIN. FAMILY AT BEDSIDE. HOB ELEVATED. CALL LIGHT WITHIN REACH. WILL CONTINUE TO BE OBSERVED. Addendum: 01/01/19 at 1109 by ALBERT HAYWOOD RN RN Amended: Links added.
--- NOTE | 2019-01-01 17:39 | NUR ---
RD Notification Patient s/p Paracentesis at time of screen. Diet advanced from NPO to Heart Healthy, Hepatic Diet; RD to add appropriate diet modifier. Patient with no complaint of GI distress. RD provided diet education for Diabetes/Cirrhosis dietary recommendations. Patient verbalized understanding with no questions at this time. Patient monitored labs: K 3.4, Ca 8.0, Mg 1.60, T. Bili 1.9, Alb 2.5, AST 46. RD to continue to monitor. Please notify RD as nutritional concerns arise. Thank you. Addendum: 01/01/19 at [address] RD Amended: Links added.
--- NOTE | 2019-01-01 17:47 | NUR ---
Diet Education IGNACIO provided diabetes and Cirrhosis Diet education in Ethiopian. Reference materials and handouts provided in Ethiopian. Patient verbalized understanding. RD encouraged patient to ask questions as they arise. RD to follow up. Addendum: 01/01/19 at [address] RD Amended: Links added.
[2019-01-02 04:00] VITALS: BP 98/58
[2019-01-02 04:22] LABS: HEMATOCRIT 31.2 % (42-54); MEAN CORPUSCULAR HEMOGLOBIN 32.1 pg (27.0-33.0); MEAN CORPUSCULAR HGB CONC 33.7 g/dL (32.0-36.0); MEAN CORPUSCULAR VOLUME 95.3 fL (79-99); NUCLEATED RED BLOOD CELLS 0.1 % (0.0-0.19); PLATELET COUNT (AUTO) 139 K/uL (130-400); RED BLOOD CELL COUNT(AUTO) 3.28 MIL/uL (4.50-6.20); RED CELL DISTRIBUTION WIDTH 15.1 % (11.0-15.5)
[2019-01-02 04:32] LABS: INR 1.67 (0.85-1.15); PROTHROMBIN TIME 17.4 SEC (9.6-11.6)
[2019-01-02 04:44] LABS: ALBUMIN 2.1 g/dL (3.5-5.0); BILIRUBIN,TOTAL 2.1 mg/dL (0.2-1.0); CREATININE 0.8 mg/dL (0.5-1.5); POTASSIUM 3.4 mmol/L (3.5-5.1); TOTAL PROTEIN, SERUM 5.6 g/dL (6.0-8.3)
[2019-01-02] MEDS: INSULIN HUMULIN R 100 UNIT/ML 3ML SQ SCH ×4 (06:47→21:00)
[2019-01-02 08:00] VITALS: BP 103/67
--- NOTE | 2019-01-02 08:00 | NUR ---
AM SHIFT ASSESSMENT.
[2019-01-02] MEDS ORDERED: POTASSIUM CHLORIDE 10% ELIXIR 20 MEQ/15 ML UDCUP PO PRN (09:45)
[2019-01-02] MEDS ORDERED: POTASSIUM CHLORIDE 20MEQ/100ML 100 ML IV PRN (09:45)
[2019-01-02] MEDS ORDERED: LIDOCAINE HCL-MPF 1% 2ML VIAL IVP PRN (09:45)
[2019-01-02] MEDS: SPIRONOLACTONE 25 MG TAB PO SCH ×3 (10:09→21:00)
[2019-01-02] MEDS: FAMOTIDINE 20MG TAB 20 MG TAB PO SCH ×2 (10:09→20:33)
[2019-01-02] MEDS: FOLIC ACID 1 MG TABLET PO SCH (10:09)
[2019-01-02] MEDS: LACTULOSE 20 GM/30 ML UDCUP PO SCH ×3 (10:09→20:33)
[2019-01-02] MEDS: FUROSEMIDE 20 MG TABLET PO SCH ×2 (10:09→23:24)
[2019-01-02] MEDS: THIAMINE HCL 100 MG TABLET PO SCH (10:09)
[2019-01-02] MEDS: MAGNESIUM 2GM PREMIX 50ML 50 ML IV PRN (10:21)
[2019-01-02 12:00] VITALS: BP 97/62
[2019-01-02] MEDS ORDERED: SPIR50TA5 PO (13:13)
[2019-01-02] MEDS ORDERED: FURO40TA7 PO (13:13)
[2019-01-02] MEDS ORDERED: LEVO500T2 PO (13:30)
--- NOTE | 2019-01-02 14:07 | NUR ---
IA AND REFERRAL REQUESTED BY MALLORY TIWARI TO ASSESS FOR HOME SAFETY. IA DONE W PATIENT, MOM AT SIDE, [place]OV[place] SPEAKING , AAOX3, S/P PARACENTESIS, STATES LIES ALONE, STATES HAS MEDICAID FOR THIS MONTH ONLY. CALL TO GORAN WILLIAM, HIS DAUGHTER; STATES SHE WANTS HIIM TO COME LIVE WITH THEM OR HIS MOM, PT WILL NOT. NOT VERY MOBILE, GOES FROM BED TO DESK TO CHAIR. GETS MEDS AT [facility]. DAUGHTER WILLING TO INCREASE ASSISTANCE TO PAINET MUCH AT PATIENT WILL ALOOW. WKR RX FROM [facility] TIWARI. DCP TO HOME. FAMILY ASSISTANCE TO INCREASE Addendum: 01/02/19 at 1416 by SMITH PARKS RN Amended: Links added.
[2019-01-02 16:00] VITALS: BP 89/59
--- NOTE | 2019-01-02 16:12 | NUR ---
PATIENT COMPLAINTS OF PAIN CHART REIVEWED, DISCUSSED PAIN W MALLORY TIWARI, ORDER FOR IMAGING OF KNEE RECD. POSS DC AFTER IMAINGIN IF NEGATIVE.
[2019-01-02 20:00] VITALS: BP 88/62
[2019-01-02] MEDS: HYDROCODONE/ACETAMINOPHEN 5/325 MG TAB PO PRN (23:27)
[2019-01-03] VITALS: BP 99/59
[2019-01-03 04:00] VITALS: BP 85/53
[2019-01-03 04:16] LABS: BASOPHILS % (AUTO) 0.7 % (0.0-5.0); HEMATOCRIT 29.4 % (42-54); MEAN CORPUSCULAR HEMOGLOBIN 33.9 pg (27.0-33.0); MEAN CORPUSCULAR HGB CONC 35.3 g/dL (32.0-36.0); MEAN CORPUSCULAR VOLUME 95.9 fL (79-99); MONOCYTES % (AUTO) 8.9 % (3.0-13.0); NEUTROPHILS % (AUTO) 46.4 % (40.0-77.0); NUCLEATED RED BLOOD CELLS 0.1 % (0.0-0.19); PLATELET COUNT (AUTO) 129 K/uL (130-400); RED BLOOD CELL COUNT(AUTO) 3.06 MIL/uL (4.50-6.20); RED CELL DISTRIBUTION WIDTH 14.9 % (11.0-15.5)
[2019-01-03 04:29] LABS: CREATININE 0.8 mg/dL (0.5-1.5); MAGNESIUM 1.8 mg/dL (1.80-2.40); POTASSIUM 3.3 mmol/L (3.5-5.1)
[2019-01-03] MEDS: INSULIN HUMULIN R 100 UNIT/ML 3ML SQ SCH ×4 (05:42→20:54)
[2019-01-03] MEDS: MAGNESIUM 2GM PREMIX 50ML 50 ML IV PRN (05:54)
[2019-01-03] MEDS: POTASSIUM CHLORIDE 20 MEQ ERTAB PO PRN ×4 (05:54→15:10)
[2019-01-03 08:00] VITALS: BP 94/62
--- NOTE | 2019-01-03 08:50 | NUR ---
Notified MALLORY Warren pt's BP consistently running low, concerned for diuretics, inst. can hold until noon and re-evaluate.
[2019-01-03] MEDS: THIAMINE HCL 100 MG TABLET PO SCH (09:39)
[2019-01-03] MEDS: FOLIC ACID 1 MG TABLET PO SCH (09:39)
[2019-01-03] MEDS: LACTULOSE 20 GM/30 ML UDCUP PO SCH ×3 (09:39→21:01)
[2019-01-03] MEDS: FAMOTIDINE 20MG TAB 20 MG TAB PO SCH ×2 (09:40→21:01)
[2019-01-03] MEDS: SPIRONOLACTONE 25 MG TAB PO SCH ×4 (09:40→21:01)
[2019-01-03] MEDS: HYDROCODONE/ACETAMINOPHEN 5/325 MG TAB PO PRN ×3 (09:43→21:05)
[2019-01-03 11:59] VITALS: BP 104/65
[2019-01-03] MEDS: FUROSEMIDE 20 MG TABLET PO SCH ×2 (11:59→21:01)
[2019-01-03 16:00] VITALS: BP 106/67
[2019-01-03 20:21] VITALS: BP 100/63
[2019-01-04] VITALS (7 sets, daily range): BP systolic 92–105; BP diastolic 57–69
[2019-01-04 04:29] LABS: BASOPHILS % (AUTO) 0.7 % (0.0-5.0); EOSINOPHILS % (AUTO) 5.8 % (0.0-8.0); HEMATOCRIT 30.3 % (42-54); MEAN CORPUSCULAR HEMOGLOBIN 32.6 pg (27.0-33.0); MEAN CORPUSCULAR HGB CONC 34.6 g/dL (32.0-36.0); MEAN CORPUSCULAR VOLUME 94.1 fL (79-99); MONOCYTES % (AUTO) 8.1 % (3.0-13.0); NEUTROPHILS % (AUTO) 49.4 % (40.0-77.0); PLATELET COUNT (AUTO) 135 K/uL (130-400); RED BLOOD CELL COUNT(AUTO) 3.22 MIL/uL (4.50-6.20); RED CELL DISTRIBUTION WIDTH 14.9 % (11.0-15.5); WHITE BLOOD COUNT (AUTO) 6.5 K/uL (4.8-10.8)
[2019-01-04 04:42] LABS: CREATININE 0.8 mg/dL (0.5-1.5); MAGNESIUM 1.9 mg/dL (1.80-2.40); POTASSIUM 4.3 mmol/L (3.5-5.1)
[2019-01-04] MEDS: ZOSYN 3.375GM+NS 50ML 50 ML IV SCH ×3 (06:33→20:34)
[2019-01-04] MEDS: INSULIN HUMULIN R 100 UNIT/ML 3ML SQ SCH ×4 (06:33→20:35)
--- NOTE | 2019-01-04 09:00 | NUR ---
Paged Dr. Paredes regarding ortho consult.
--- NOTE | 2019-01-04 09:30 | NUR ---
Notified Maureen Cruz pt. on lactulose but states has not had BM in 4 days. Lactulose dose increased.
[2019-01-04] MEDS: THIAMINE HCL 100 MG TABLET PO SCH (11:03)
[2019-01-04] MEDS: FAMOTIDINE 20MG TAB 20 MG TAB PO SCH ×2 (11:03→20:35)
[2019-01-04] MEDS: LACTULOSE 20 GM/30 ML UDCUP PO SCH ×3 (11:03→20:34)
[2019-01-04] MEDS: SPIRONOLACTONE 25 MG TAB PO SCH ×4 (11:03→20:35)
[2019-01-04] MEDS: FOLIC ACID 1 MG TABLET PO SCH (11:03)
[2019-01-04] MEDS: MAGNESIUM 2GM PREMIX 50ML 50 ML IV PRN (11:04)
[2019-01-04] MEDS: HYDROCODONE/ACETAMINOPHEN 5/325 MG TAB PO PRN ×3 (11:24→23:03)
--- NOTE | 2019-01-04 11:25 | NUR ---
Called Dr. Paredes, no answer to first page, notified him of consult, states he will come see the pt.
[2019-01-04] MEDS: FUROSEMIDE 20 MG TABLET PO SCH ×2 (14:04→20:35)
--- NOTE | 2019-01-04 23:03 | NUR ---
PAIN Pt medicated with Hydrocodone tab for pain to rt knee.
[2019-01-05 03:58] VITALS: BP 105/81
[2019-01-05 04:22] LABS: BASOPHILS % (AUTO) 0.9 % (0.0-5.0); EOSINOPHILS % (AUTO) 7.9 % (0.0-8.0); MEAN CORPUSCULAR HEMOGLOBIN 33.4 pg (27.0-33.0); MEAN CORPUSCULAR VOLUME 95.6 fL (79-99); MONOCYTES % (AUTO) 9.4 % (3.0-13.0); NEUTROPHILS % (AUTO) 38.8 % (40.0-77.0); NUCLEATED RED BLOOD CELLS 0.1 % (0.0-0.19); PLATELET COUNT (AUTO) 116 K/uL (130-400); RED BLOOD CELL COUNT(AUTO) 3.14 MIL/uL (4.50-6.20); RED CELL DISTRIBUTION WIDTH 15.1 % (11.0-15.5); WHITE BLOOD COUNT (AUTO) 5.1 K/uL (4.8-10.8)
[2019-01-05 04:29] LABS: CREATININE 0.8 mg/dL (0.5-1.5); POTASSIUM 4.1 mmol/L (3.5-5.1)
[2019-01-05] MEDS: ZOSYN 3.375GM+NS 50ML 50 ML IV SCH ×3 (04:51→20:28)
[2019-01-05] MEDS: INSULIN HUMULIN R 100 UNIT/ML 3ML SQ SCH ×4 (05:44→21:00)
[2019-01-05 07:40] VITALS: BP 95/60
[2019-01-05] MEDS: LACTULOSE 20 GM/30 ML UDCUP PO SCH ×3 (09:13→20:28)
[2019-01-05] MEDS: FAMOTIDINE 20MG TAB 20 MG TAB PO SCH ×2 (09:14→20:28)
[2019-01-05] MEDS: FOLIC ACID 1 MG TABLET PO SCH (09:14)
[2019-01-05] MEDS: FUROSEMIDE 20 MG TABLET PO SCH ×2 (09:14→20:28)
[2019-01-05] MEDS: THIAMINE HCL 100 MG TABLET PO SCH (09:14)
[2019-01-05] MEDS: SPIRONOLACTONE 25 MG TAB PO SCH ×3 (09:14→20:29)
[2019-01-05] MEDS: HYDROCODONE/ACETAMINOPHEN 5/325 MG TAB PO PRN ×3 (10:49→20:31)
[2019-01-05 11:57] VITALS: BP 99/70
--- NOTE | 2019-01-05 14:05 | NUR ---
U/S GD PARACENTESIS PROCEDURE PERFORMED BY DR Fan FRAZEIR. PUNCTURE SITE RLQ. TOTAL REMOVED 11.0 LITERS OF CLOUDY YELLOW FLUID. ALBUMIN 25% 50 GRAMS ORDERED PER PROTOCOL. END OF PROCEDURE AT 1445. CATHETER REMOVED AND DRESSING APPLIED. NO BLEEDING NOTED. REPORT GIVEN TO SAMINA GLYNN AND PATIENT TRANSPORTED TO [facility] [place] VIA W/C @ 1520. PT STABLE, AAO X3 WITH NO C/O PAIN.
[2019-01-05] MEDS ORDERED: ALBUMIN (HUMAN) 25% 200 ML IV STA (14:20)
[2019-01-05 16:14] VITALS: BP 93/53
[2019-01-05 17:03] LABS: APPEARANCE BODY FLUID CLEAR (CLEAR); BODY FLUID RBC 98 /cu. mm.; BODY FLUID WBC 96 /cu. mm.; COLOR,BODY FLUID YELLOW (LT YELLOW); SPECIMENTYPE,BODY FLUID ASCITES; TOTAL VOLUME,BODY FLUID 11000 mL
[2019-01-05 19:12] VITALS: BP 96/54
[2019-01-05 20:37] LABS: BF LYMPHOCYTE 56 %; BF MESOTHELIAL 4 %; BF MONOCYTE 9 %; BF OTHER CELLS 3
[2019-01-05 23:41] VITALS: BP 90/53
[2019-01-06 03:26] VITALS: BP 87/53
--- NOTE | 2019-01-06 03:26 | NUR ---
STATUS Pt resting quietly,respirations even and unlabored.No sob noted.
--- NOTE | 2019-01-06 03:52 | NUR ---
BP Bp 87/53,pt awake,alert.asymptomatic.
[2019-01-06] MEDS: HYDROCODONE/ACETAMINOPHEN 5/325 MG TAB PO PRN (03:57)
[2019-01-06 04:23] LABS: BASOPHILS % (AUTO) 0.8 % (0.0-5.0); EOSINOPHILS % (AUTO) 7.3 % (0.0-8.0); HEMATOCRIT 31.2 % (42-54); LYMPHOCYTES % (AUTO) 39.2 % (21.0-51.0); MEAN CORPUSCULAR HEMOGLOBIN 32.3 pg (27.0-33.0); MEAN CORPUSCULAR HGB CONC 34.1 g/dL (32.0-36.0); MEAN CORPUSCULAR VOLUME 94.6 fL (79-99); MONOCYTES % (AUTO) 9.1 % (3.0-13.0); NEUTROPHILS % (AUTO) 43.6 % (40.0-77.0); PLATELET COUNT (AUTO) 123 K/uL (130-400); RED CELL DISTRIBUTION WIDTH 14.9 % (11.0-15.5); WHITE BLOOD COUNT (AUTO) 5.7 K/uL (4.8-10.8)
[2019-01-06 04:58] LABS: CREATININE 0.9 mg/dL (0.5-1.5); POTASSIUM 3.8 mmol/L (3.5-5.1)
[2019-01-06] MEDS: INSULIN HUMULIN R 100 UNIT/ML 3ML SQ SCH ×3 (05:16→16:30)
[2019-01-06] MEDS: ZOSYN 3.375GM+NS 50ML 50 ML IV SCH ×2 (05:17→13:27)
[2019-01-06 08:00] VITALS: BP 100/55
[2019-01-06] MEDS ORDERED: TYL3 PO (09:01)
[2019-01-06] MEDS: THIAMINE HCL 100 MG TABLET PO SCH (10:24)
[2019-01-06] MEDS: FUROSEMIDE 20 MG TABLET PO SCH ×2 (10:24→17:27)
[2019-01-06] MEDS: FOLIC ACID 1 MG TABLET PO SCH (10:24)
[2019-01-06] MEDS: FAMOTIDINE 20MG TAB 20 MG TAB PO SCH (10:24)
[2019-01-06] MEDS: SPIRONOLACTONE 25 MG TAB PO SCH ×3 (10:24→17:06)
[2019-01-06] MEDS: LACTULOSE 20 GM/30 ML UDCUP PO SCH ×2 (10:40→13:27)
[2019-01-06 12:00] VITALS: BP 91/55
[2019-01-06 16:00] VITALS: BP 102/53
[2019-01-06] MEDS ORDERED: ALBUMIN (HUMAN) 25% 200 ML IV SCH (16:15)
--- NOTE | 2019-01-06 17:20 | NUR ---
Patient discharged in stable condition. Daughter Jenny and mother present. Patient given discharge instructions on diagnoes, on how to take prescribed medications and possible side effects such as hypotension. Instructed on when and how to take T#3 and side effects. Patient instructed to go in as walk in to PCP Dr. Mcdonald. Dr. Max appt tomorrow 01/07/19 @ 0894 and daughter to make appt for Dr. Paredes for 2-3 weeks. Instructed to come back to ER if SOB, chest pain or changes in mental status. Daughter verbalized understanding to teaching. Patient in no distress upon discharge.
== END 2019-01-06 18:39 | disposition home or self-care (01) | DRG 280 ==
LOC: EDH 22:41 → OBSVTOIN 22:42 → EDHIP 22:42 → INTOOBSV 22:42 → 4CH 01-01 00:23
PROVIDERS: ADMIT Internal Medicine; ATTEND Internal Medicine
PROC: 0W9G3ZZ Drainage of Peritoneal Cavity, Percutaneous Approach (ICD-10-PCS; principal; 2019-01-01)
PROC: 0W9G3ZZ Drainage of Peritoneal Cavity, Percutaneous Approach (ICD-10-PCS; 2019-01-05)
DX: K70.31 Alcoholic cirrhosis of liver with ascites (principal); E43 Unspecified severe protein-calorie malnutrition; D68.59 Other primary thrombophilia; E88.09 Other disorders of plasma-protein metabolism, not elsewhere classified; E86.0 Dehydration; M19.90 Unspecified osteoarthritis, unspecified site; S83.249A Other tear of medial meniscus, current injury, unspecified knee, initial encounter; E87.6 Hypokalemia; G89.29 Other chronic pain; S83.281A Other tear of lateral meniscus, current injury, right knee, initial encounter; M25.461 Effusion, right knee; E11.9 Type 2 diabetes mellitus without complications; S83.241A Other tear of medial meniscus, current injury, right knee, initial encounter; X58.XXXA Exposure to other specified factors, initial encounter; Y93.89 Activity, other specified; Z87.891 Personal history of nicotine dependence; Y92.89 Other specified places as the place of occurrence of the external cause; Y99.8 Other external cause status
CPT/HCPCS: 36415; 49083; 71045; 73560; 73721; 80048; 80053; 81003; 82140; 82948; 83036; 83690; 83735; 83880; 84484; 85025; 85027; 85610; 85730; 87071; 87205; 88108; 88305; 89051; 93005; 96365; G0378; J1815; J1940; J2405; J2543; J3475; P9046

== ENCOUNTER 2019-03-29 05:33 | Emergency (ER) | payer MEDICAID, OTHER ==
[~2019-03-29 05:33] MED LIST changes: +FOLI1TAB15 PO; +FURO40TA7 PO; +LACT10SO PO; -LACT10SO32 PO; +LEVO500T2 PO; +SPIR50TA5 PO; +THIA100T91 PO; +TYL3 PO
[2019-03-29 05:58] LABS: APPEARANCE,URINE Clear (CLEAR); BILIRUBIN,URINE Negative (NEGATIVE); COLOR,URINE Yellow (YELLOW); GLUCOSE, URINE (UA) Negative (NEGATIVE); KETONES,URINE Negative (NEGATIVE); LEUKOCYTE ESTERASE ,URINE Negative (NEGATIVE); NITRATE,URINE Negative (NEGATIVE); OCCULT BLOOD,URINE Negative (NEGATIVE); PROTEIN,URINE Negative (NEGATIVE)
[2019-03-29] MEDS ORDERED: KETOROLAC TROMETHAMINE 15MG/ML ONE (06:07)
[2019-03-29] MEDS ORDERED: ONDANSETRON HCL 4 MG/2 ML VIAL ONE (06:07)
[2019-03-29 06:09] LABS: BASOPHILS % (AUTO) 0.8 % (0.0-5.0); EOSINOPHILS % (AUTO) 3.4 % (0.0-8.0); HEMATOCRIT 35.8 % (42-54); LYMPHOCYTES % (AUTO) 35.3 % (21.0-51.0); MEAN CORPUSCULAR HEMOGLOBIN 32.7 pg (27.0-33.0); MEAN CORPUSCULAR VOLUME 93.5 fL (79-99); MONOCYTES % (AUTO) 9.7 % (3.0-13.0); NEUTROPHILS % (AUTO) 50.8 % (40.0-77.0); NUCLEATED RED BLOOD CELLS 0.1 % (0.0-0.19); PLATELET COUNT (AUTO) 99 K/uL (130-400); RED BLOOD CELL COUNT(AUTO) 3.83 MIL/uL (4.50-6.20); RED CELL DISTRIBUTION WIDTH 14.1 % (11.0-15.5); WHITE BLOOD COUNT (AUTO) 5.7 K/uL (4.8-10.8)
[2019-03-29 06:18] LABS: CREATININE 0.8 mg/dL (0.5-1.5)
[2019-03-29 06:24] LABS: ALBUMIN 2.9 g/dL (3.5-5.0); BILIRUBIN,DIRECT 0.5 mg/dL (0.0-0.3); BILIRUBIN,TOTAL 1.3 mg/dL (0.2-1.0); TOTAL PROTEIN, SERUM 7.6 g/dL (6.0-8.3)
[2019-03-29 07:27] LABS: PLATELET MORPHOLOGY COMMENT DECREASED
== END 2019-03-29 07:28 | disposition home or self-care (01) ==
LOC: EDH 05:33
DX: K42.9 Umbilical hernia without obstruction or gangrene (principal); K74.60 Unspecified cirrhosis of liver; Z87.891 Personal history of nicotine dependence
CPT/HCPCS: 36415; 74176; 80048; 80076; 81003; 83690; 85025; 96374; 96375; 99285; J1885; J2405

== ENCOUNTER 2020-06-01 11:06 | Inpatient (IN) | payer OTHER, SELFPAY ==
[~2020-06-01] VITALS: Ht 165.1 cm; Wt 76.2 kg
[2020-06-01 11:29] LABS: BASOPHILS % (AUTO) 0.6 % (0.0-5.0); EOSINOPHILS % (AUTO) 1.2 % (0.0-8.0); MEAN CORPUSCULAR HEMOGLOBIN 18.4 pg (27.0-33.0); MEAN CORPUSCULAR HGB CONC 28.3 g/dL (32.0-36.0); MEAN CORPUSCULAR VOLUME 64.9 fL (79-99); MONOCYTES % (AUTO) 11.3 % (3.0-13.0); PLATELET COUNT (AUTO) 68 K/uL (130-400); RED BLOOD CELL COUNT(AUTO) 3.05 MIL/uL (4.50-6.20); RED CELL DISTRIBUTION WIDTH 21.8 % (11.0-15.5); WHITE BLOOD COUNT (AUTO) 3.3 K/uL (4.8-10.8)
[2020-06-01 11:39] LABS: POTASSIUM 3.4 mmol/L (3.5-5.1)
[2020-06-01 11:43] LABS: ALBUMIN 2.7 g/dL (3.5-5.0); HEMATOCRIT 19.8 % (42-54)
[2020-06-01 11:57] LABS: INR 1.57 (0.85-1.15); PARTIAL THROMBOPLASTIN TIME 28.5 SEC (26.3-35.5); PROTHROMBIN TIME 16.7 SEC (9.6-11.6)
[2020-06-01 12:41] LABS: PLATELET MORPHOLOGY COMMENT DECREASED; RETICULOCYTE % (AUTO) 2.04 % (0.42-2.23)
[2020-06-01] MEDS ORDERED: LORATADINE 10 MG TABLET PO SCH (12:45)
[2020-06-01] MEDS ORDERED: HYDRALAZINE HCL 20 MG/ML VIAL IV PRN (12:45)
[2020-06-01] MEDS ORDERED: LORATADINE 10 MG TABLET ONE (13:55)
[2020-06-01 14:18] LABS: APPEARANCE,URINE Clear (CLEAR); BILIRUBIN,URINE Negative (NEGATIVE); COLOR,URINE Dark Yellow (YELLOW); GLUCOSE, URINE (UA) Negative (NEGATIVE); KETONES,URINE Negative (NEGATIVE); LEUKOCYTE ESTERASE ,URINE Negative (NEGATIVE); NITRATE,URINE Negative (NEGATIVE); OCCULT BLOOD,URINE Negative (NEGATIVE); PH,URINE 6.5 (5.0-8.0); PROTEIN,URINE Negative (NEGATIVE)
[2020-06-01 14:32] LABS: BACTERIA,URINE Rare /HPF (None Seen); RBC,URINE 0-1 /HPF (0-1); SQUAMOUS EPITHELIAL CELL,UR Rare /HPF (0-2); WBC,URINE 0-1 /HPF (0-1)
[2020-06-01 21:43] VITALS: BP 119/73
[2020-06-01 23:32] VITALS: BP 112/73
[2020-06-02] MEDS ORDERED: METF-444 PO (00:06)
[2020-06-02] MEDS ORDERED: FURO40TA5 PO (00:06)
[2020-06-02] MEDS ORDERED: SPIR100T5 PO (00:06)
[2020-06-02] MEDS ORDERED: TAMS-1 PO (00:06)
[2020-06-02 03:40] VITALS: BP 135/74
[2020-06-02 05:12] LABS: BASOPHILS % (AUTO) 0.6 % (0.0-5.0); EOSINOPHILS % (AUTO) 2.4 % (0.0-8.0); HEMATOCRIT 23.3 % (42-54); LYMPHOCYTES % (AUTO) 25.4 % (21.0-51.0); MEAN CORPUSCULAR HEMOGLOBIN 20.4 pg (27.0-33.0); MEAN CORPUSCULAR HGB CONC 29.6 g/dL (32.0-36.0); MEAN CORPUSCULAR VOLUME 68.7 fL (79-99); MONOCYTES % (AUTO) 11.5 % (3.0-13.0); NEUTROPHILS % (AUTO) 59.5 % (40.0-77.0); PLATELET COUNT (AUTO) 53 K/uL (130-400); RED BLOOD CELL COUNT(AUTO) 3.39 MIL/uL (4.50-6.20); WHITE BLOOD COUNT (AUTO) 3.3 K/uL (4.8-10.8)
[2020-06-02 05:37] LABS: ALBUMIN 2.2 g/dL (3.5-5.0); BILIRUBIN,TOTAL 5.5 mg/dL (0.2-1.0); CREATININE 0.7 mg/dL (0.5-1.5); POTASSIUM 3.5 mmol/L (3.5-5.1); TOTAL PROTEIN, SERUM 6.1 g/dL (6.0-8.3)
--- NOTE | 2020-06-02 06:30 | NUR ---
PATIENT UPDATE Pt admitted last night for severe anemia with an h/h of 5.6 and 19.8fr ER, was given 2 units of prbc overnight. Blood transfusion tolerated well, no transfusion reactions noted. H/H recheck this am still at 6.9 and 23, Dr. Liu called and ordered to transfuse 1 more unit of prbc , pt made aware about the plan of care and in agreement with transfusion of another unit of prbc.
[2020-06-02] MEDS: TAMSULOSIN HCL 0.4 MG CAP.ER.24H PO SCH (08:47)
[2020-06-02] MEDS: SPIRONOLACTONE 25 MG TAB PO SCH (08:47)
[2020-06-02 09:45] VITALS: BP 105/68
[2020-06-02 11:37] VITALS: BP 110/67
[2020-06-02 11:49] LABS: HEMATOCRIT 25.8 % (42-54)
[2020-06-02] MEDS ORDERED: LORATADINE 10 MG TABLET ONE (12:00)
--- NOTE | 2020-06-02 16:21 | NUR ---
DCP CM spoke to pt discussed dc plans. Pt is independent prior to admission, lives at home alone, daughter lives close by. Pt has a walker. Denies any other equipments/services. Feels safe to go back home, daughter able to assist with transportation and needs as necessary. DC plan to home once stable. CM to cont to follow up. Addendum: 06/02/20 at 1622 by SLAVA PARADA LVN CM Amended: Links added.
[2020-06-02 16:44] VITALS: BP 107/68
[2020-06-02] MEDS: METFORMIN HCL 500 MG TABLET PO SCH ×2 (17:08→17:21)
[2020-06-02 20:00] VITALS: BP 111/64
[2020-06-02 21:49] LABS: HEMATOCRIT 25.3 % (42-54)
--- NOTE | 2020-06-02 22:24 | NUR ---
GI CONSULT PT'S STOOL POSITIVE FOR OCCULT BLOOD, WENT AHEAD AND PAGED DR. DAWSON FOR GI CONSULT PER ORDER. CALLED BACK AT 2200 WITH ORDERS TO SCHEDULE PT FOR NPO POST MN, FOR EGD WITH MAC IN THE AM. PT MADE AWARE ABOUT THE PLAN OF CARE AND CONSENTING FOR THE PROCEDURE. CONTINUES WITH THE SERIAL H/H DRAW, MONITORED CLOSELY FOR ANY SIGNS OF BLEEDING, LATEST H/H AT 7.6 AND 25.3.ASHWINI BARAJASP OK'D TO ORDER FOR 1U OF PRBC ON STAND BY FOR NOW AND LABS IN THE AM.
[2020-06-02 23:44] VITALS: BP 109/71
[2020-06-03] VITALS (16 sets, daily range): BP systolic 91–128; BP diastolic 58–78
[2020-06-03 05:15] LABS: BASOPHILS % (AUTO) 0.8 % (0.0-5.0); EOSINOPHILS % (AUTO) 4.5 % (0.0-8.0); HEMATOCRIT 27.2 % (42-54); LYMPHOCYTES % (AUTO) 34.8 % (21.0-51.0); MEAN CORPUSCULAR HEMOGLOBIN 21.1 pg (27.0-33.0); MEAN CORPUSCULAR HGB CONC 29.8 g/dL (32.0-36.0); MEAN CORPUSCULAR VOLUME 70.8 fL (79-99); MONOCYTES % (AUTO) 9.8 % (3.0-13.0); NEUTROPHILS % (AUTO) 49.8 % (40.0-77.0); PLATELET COUNT (AUTO) 69 K/uL (130-400); RED BLOOD CELL COUNT(AUTO) 3.84 MIL/uL (4.50-6.20); RED CELL DISTRIBUTION WIDTH 25.2 % (11.0-15.5); WHITE BLOOD COUNT (AUTO) 3.8 K/uL (4.8-10.8)
[2020-06-03 05:32] LABS: ALBUMIN 2.3 g/dL (3.5-5.0); BILIRUBIN,TOTAL 3.8 mg/dL (0.2-1.0); CREATININE 0.9 mg/dL (0.5-1.5); POTASSIUM 3.5 mmol/L (3.5-5.1); TOTAL PROTEIN, SERUM 6.6 g/dL (6.0-8.3)
--- NOTE | 2020-06-03 06:41 | NUR ---
PATIENT UPDATE KEEPING NPO POST MN, GOING FOR EGD WITH MAC THIS AM. LATEST H/H AT 8.1/ 27.2. NO COMPLAINTS OF ANY DISCOMFORT.
[2020-06-03] MEDS: SPIRONOLACTONE 25 MG TAB PO SCH (08:37)
[2020-06-03] MEDS: METFORMIN HCL 500 MG TABLET PO SCH ×2 (08:37→16:46)
[2020-06-03] MEDS: TAMSULOSIN HCL 0.4 MG CAP.ER.24H PO SCH (08:37)
[2020-06-03] MEDS ORDERED: PROPOFOL 10 MG/ML 20ML VIAL IV ONE (09:21)
[2020-06-03] MEDS ORDERED: SIMETHICONE 40 MG/0.6 ML ML ONE (09:21)
--- NOTE | 2020-06-03 10:24 | NUR ---
POST PROCEDURE NURSES NOTE PATIENT RETURN TO FLOOR S/P EGD. VS 110/58, 89, 97.5, 18. NO ACUTE DISTRESS NOTED RESTING COMFORTABLY. DR. GAINES ORDERED H& H WITH LABS IN AM WELL CLEAR LIQUID DIET X 24 HOURS. WILL CONTINUE TO MONITOR.
[2020-06-03 12:12] LABS: HEMATOCRIT 26.1 % (42-54)
[2020-06-03 21:53] LABS: HEMATOCRIT 24.3 % (42-54)
[2020-06-04] VITALS (7 sets, daily range): BP systolic 106–116; BP diastolic 63–68
[2020-06-04 06:05] LABS: BASOPHILS % (AUTO) 0.6 % (0.0-5.0); EOSINOPHILS % (AUTO) 4.3 % (0.0-8.0); HEMATOCRIT 25.8 % (42-54); LYMPHOCYTES % (AUTO) 33.8 % (21.0-51.0); MEAN CORPUSCULAR HEMOGLOBIN 21.1 pg (27.0-33.0); MEAN CORPUSCULAR HGB CONC 29.8 g/dL (32.0-36.0); MEAN CORPUSCULAR VOLUME 70.7 fL (79-99); MONOCYTES % (AUTO) 10.5 % (3.0-13.0); NEUTROPHILS % (AUTO) 50.2 % (40.0-77.0); PLATELET COUNT (AUTO) 78 K/uL (130-400); RED BLOOD CELL COUNT(AUTO) 3.65 MIL/uL (4.50-6.20); RED CELL DISTRIBUTION WIDTH 26.4 % (11.0-15.5); WHITE BLOOD COUNT (AUTO) 3.3 K/uL (4.8-10.8)
[2020-06-04 06:25] LABS: CREATININE 0.9 mg/dL (0.5-1.5); POTASSIUM 3.4 mmol/L (3.5-5.1)
[2020-06-04 08:34] LABS: HEMATOCRIT 27.2 % (42-54)
[2020-06-04] MEDS: TAMSULOSIN HCL 0.4 MG CAP.ER.24H PO SCH (09:45)
[2020-06-04] MEDS: SPIRONOLACTONE 25 MG TAB PO SCH (09:45)
[2020-06-04] MEDS: METFORMIN HCL 500 MG TABLET PO SCH ×2 (09:45→17:00)
[2020-06-04 14:21] LABS: HEMATOCRIT 26.8 % (42-54)
[2020-06-04 22:15] LABS: HEMATOCRIT 26.3 % (42-54)
--- NOTE | 2020-06-04 23:15 | NUR ---
received report from am nurse, assumed care, introduced self, pt aox2, head to toe assessment done, timed medication given see emar, safety maintained, bed in lowest position, call velazquez in reached, bed alarm on, 24 cc done. will continue to monitor.
[2020-06-05 04:00] VITALS: BP 116/72
[2020-06-05 06:23] LABS: MEAN CORPUSCULAR HEMOGLOBIN 21.1 pg (27.0-33.0); MEAN CORPUSCULAR HGB CONC 29.6 g/dL (32.0-36.0); MEAN CORPUSCULAR VOLUME 71.2 fL (79-99); PLATELET COUNT (AUTO) 79 K/uL (130-400); RED BLOOD CELL COUNT(AUTO) 3.79 MIL/uL (4.50-6.20); RED CELL DISTRIBUTION WIDTH 27.9 % (11.0-15.5); WHITE BLOOD COUNT (AUTO) 3.5 K/uL (4.8-10.8)
[2020-06-05 06:42] LABS: CREATININE 0.9 mg/dL (0.5-1.5); POTASSIUM 3.3 mmol/L (3.5-5.1)
[2020-06-05 08:00] VITALS: BP 106/68
[2020-06-05 08:27] LABS: BASOPHILS % (MANUAL) 1 % (0-2); EOSINOPHILS % (MANUAL) 5 % (1-6); LYMPHOCYTES % (MANUAL) 37 % (22-44); MAN.DIFF COMMENT-IMPRESSION MANUAL DIFFERENTIAL; MONOCYTES % (MANUAL) 5 % (2-9); PLATELET MORPHOLOGY COMMENT DECREASED; SEGMENTED NEUTROPHILS % 52 % (40-70)
[2020-06-05] MEDS: TAMSULOSIN HCL 0.4 MG CAP.ER.24H PO SCH (10:25)
[2020-06-05] MEDS: METFORMIN HCL 500 MG TABLET PO SCH ×2 (10:25→17:17)
[2020-06-05] MEDS: SPIRONOLACTONE 25 MG TAB PO SCH (10:25)
[2020-06-05] MEDS: IRON SUCROSE COMPLEX 200 MG in SODIUM CHLORIDE 0.9% 100 ML IV SCH (10:26)
[2020-06-05 12:00] VITALS: BP 112/63
[2020-06-05] MEDS ORDERED: LIDOCAINE HCL-MPF 1% 2ML VIAL IV PRN (13:15)
[2020-06-05] MEDS ORDERED: POTASSIUM CHLORIDE 10% ELIXIR 20 MEQ/15 ML UDCUP PO PRN (13:15)
[2020-06-05] MEDS ORDERED: POTASSIUM CHLORIDE 20MEQ/100ML 100 ML IV PRN (13:15)
[2020-06-05 16:00] VITALS: BP 108/69
[2020-06-05] MEDS: MAGNESIUM 2GM PREMIX 50ML 50 ML IV PRN (17:17)
[2020-06-05] MEDS: POTASSIUM CHLORIDE 20 MEQ ERTAB PO PRN ×2 (19:33→23:52)
[2020-06-05 20:00] VITALS: BP 117/69
[2020-06-06] VITALS (7 sets, daily range): BP systolic 98–128; BP diastolic 59–67
[2020-06-06 05:08] LABS: MEAN CORPUSCULAR HEMOGLOBIN 21.8 pg (27.0-33.0); MEAN CORPUSCULAR VOLUME 72.6 fL (79-99); PLATELET COUNT (AUTO) 68 K/uL (130-400); RED BLOOD CELL COUNT(AUTO) 3.72 MIL/uL (4.50-6.20); WHITE BLOOD COUNT (AUTO) 2.6 K/uL (4.8-10.8)
[2020-06-06] MEDS: METFORMIN HCL 500 MG TABLET PO SCH ×2 (05:23→17:04)
[2020-06-06] MEDS: POTASSIUM CHLORIDE 20 MEQ ERTAB PO PRN (05:24)
[2020-06-06 05:39] LABS: % IRON SATURATION 17.7 % (30-44)
[2020-06-06 05:50] LABS: ALANINE AMINOTRANSFERASE 21 U/L (12-78); ALBUMIN 2.4 g/dL (3.5-5.0); ASPARTATE AMINOTRANSFERASE 40 U/L (10-37); BILIRUBIN,TOTAL 2.8 mg/dL (0.2-1.0); CARBON DIOXIDE 26 mmol/L (21-32); CHLORIDE 106 mmol/L (101-111); CREATININE 0.9 mg/dL (0.5-1.5); GLOMERULAR FILTR. RATE CALC 91 mL/min (>60); GLUCOSE,RANDOM 108 mg/dL (70-105); LACTATE DEHYDROGENASE 114 U/L (81-234); SODIUM SERUM 140 mmol/L (136-145); TOTAL PROTEIN, SERUM 6.6 g/dL (6.0-8.3); UREA NITROGEN, BLOOD 11 mg/dL (7-18)
[2020-06-06 06:28] LABS: BASOPHILS % (MANUAL) 2 % (0-2); LYMPHOCYTES % (MANUAL) 24 % (22-44); MAN.DIFF COMMENT-IMPRESSION MANUAL DIFFERENTIAL; MONOCYTES % (MANUAL) 12 % (2-9); SEGMENTED NEUTROPHILS % 62 % (40-70)
[2020-06-06 06:31] LABS: PLATELET MORPHOLOGY COMMENT DECREASED
[2020-06-06] MEDS: MAGNESIUM 2GM PREMIX 50ML 50 ML IV PRN (07:28)
[2020-06-06] MEDS: TAMSULOSIN HCL 0.4 MG CAP.ER.24H PO SCH (09:39)
[2020-06-06] MEDS: SPIRONOLACTONE 25 MG TAB PO SCH (09:39)
[2020-06-06] MEDS: IRON SUCROSE COMPLEX 200 MG in SODIUM CHLORIDE 0.9% 100 ML IV SCH (09:57)
--- NOTE | 2020-06-06 10:19 | NUR ---
SPOKE WITH PTS DAUGHTER TO GIVE UPDATE ON PT POC AND STATUS
[2020-06-06] MEDS ORDERED: COMPOUND IV MISC 1 EACH IVSOLN MISC PRN (12:30)
[2020-06-06] MEDS ORDERED: EPOETIN ALFA 10,000 UNIT/ML VIAL SQ SCH (17:00)
[2020-06-06] MEDS ORDERED: PHYTONADIONE 10 MG/1 ML AMP IM SCH (17:00)
--- NOTE | 2020-06-06 20:00 | NUR ---
ASSESS SHIFT ASSESSMENT DONE, PLEASE REFER TO CHART. KEPT COMFORTABLE IN BED. ENCOURAGED TO REST AND SLEEP. CALL LIGHT WITHIN REACH. WILL MONITOR PT.
--- NOTE | 2020-06-06 22:20 | NUR ---
ROUNDS PT ALREADY ASLEEP WITH RESPIRATIONS EVEN AND UNLABORED. NO NOTED DISTRESS. KEPT UNDISTURBED FOR NOW. WILL CONTINUE TO MONITOR.
--- NOTE | 2020-06-07 02:15 | NUR ---
ROUNDS PT RESTING WELL. NO CONCERNS VERBALIZED. ENCOURAGED TO GO BACK TO SLEEP. CALL LIGHT WITHIN REACH. WILL MONITOR PT.
[2020-06-07 03:46] VITALS: BP 95/59
[2020-06-07 04:35] LABS: BASOPHILS % (AUTO) 1.1 % (0.0-5.0); EOSINOPHILS % (AUTO) 6.1 % (0.0-8.0); HEMATOCRIT 27.3 % (42-54); LYMPHOCYTES % (AUTO) 34.3 % (21.0-51.0); MEAN CORPUSCULAR HEMOGLOBIN 21.5 pg (27.0-33.0); MEAN CORPUSCULAR HGB CONC 29.7 g/dL (32.0-36.0); MEAN CORPUSCULAR VOLUME 72.4 fL (79-99); MONOCYTES % (AUTO) 15.7 % (3.0-13.0); NEUTROPHILS % (AUTO) 42.1 % (40.0-77.0); PLATELET COUNT (AUTO) 64 K/uL (130-400); RED BLOOD CELL COUNT(AUTO) 3.77 MIL/uL (4.50-6.20); RED CELL DISTRIBUTION WIDTH 28.4 % (11.0-15.5); WHITE BLOOD COUNT (AUTO) 2.8 K/uL (4.8-10.8)
[2020-06-07 04:55] LABS: INR 1.46 (0.85-1.15); PARTIAL THROMBOPLASTIN TIME 32.9 SEC (26.3-35.5); PROTHROMBIN TIME 15.5 SEC (9.6-11.6)
[2020-06-07 05:02] LABS: ALBUMIN 2.4 g/dL (3.5-5.0); BILIRUBIN,TOTAL 1.9 mg/dL (0.2-1.0); CREATININE 0.9 mg/dL (0.5-1.5); MAGNESIUM 1.7 mg/dL (1.80-2.40); PHOSPHORUS 2.9 mg/dL (2.5-4.9); POTASSIUM 3.6 mmol/L (3.5-5.1); TOTAL PROTEIN, SERUM 6.7 g/dL (6.0-8.3)
--- NOTE | 2020-06-07 05:11 | NUR ---
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 SHIP/REC/DOC CONTROL STATED HE WILL ORDER MEDS. PLEASE REFER TO CPOE. WILL MEDICATE PT.
[2020-06-07] MEDS ORDERED: LACTULOSE 20 GM/30 ML UDCUP ONE (05:29)
[2020-06-07] MEDS: MAGNESIUM 2GM PREMIX 50ML 50 ML IV PRN (05:36)
[2020-06-07] MEDS: POTASSIUM CHLORIDE 20 MEQ ERTAB PO PRN (05:36)
[2020-06-07] MEDS: LACTULOSE 20 GM/30 ML UDCUP PO SCH ×2 (05:45→14:00)
[2020-06-07 07:30] VITALS: BP 104/62
[2020-06-07] MEDS ORDERED: THIAMINE HCL 100 MG TABLET PO SCH (09:00)
[2020-06-07] MEDS: METFORMIN HCL 500 MG TABLET PO SCH (10:24)
[2020-06-07] MEDS: IRON SUCROSE COMPLEX 200 MG in SODIUM CHLORIDE 0.9% 100 ML IV SCH (10:26)
[2020-06-07] MEDS: TAMSULOSIN HCL 0.4 MG CAP.ER.24H PO SCH (10:27)
[2020-06-07] MEDS: SPIRONOLACTONE 25 MG TAB PO SCH (10:27)
[2020-06-07 11:00] VITALS: BP 103/65
--- NOTE | 2020-06-07 14:30 | NUR ---
DISCHARGE discussed discharge instructions with pt,translated by GABE PLATA
== END 2020-06-07 14:55 | disposition home or self-care (01) | DRG 378 ==
LOC: EDH 11:06 → EDHIP 12:45 → OBSVTOIN 12:45 → 3CH 19:12
PROVIDERS: ADMIT Hospitalist; ATTEND Hospitalist
PROC: 30233N1 Transfusion of Nonautologous Red Blood Cells into Peripheral Vein, Percutaneous Approach (ICD-10-PCS; 2020-06-01)
PROC: 0DB68ZX Excision of Stomach, Via Natural or Artificial Opening Endoscopic, Diagnostic (ICD-10-PCS; principal; 2020-06-03)
DX: K29.71 Gastritis, unspecified, with bleeding (principal); D61.818 Other pancytopenia; D50.9 Iron deficiency anemia, unspecified; K70.30 Alcoholic cirrhosis of liver without ascites; D63.8 Anemia in other chronic diseases classified elsewhere; F10.20 Alcohol dependence, uncomplicated; E11.9 Type 2 diabetes mellitus without complications; D73.1 Hypersplenism; K20.9 Esophagitis, unspecified; K29.70 Gastritis, unspecified, without bleeding; N40.0 Benign prostatic hyperplasia without lower urinary tract symptoms
CPT/HCPCS: 36415; 36430; 43239; 80048; 80053; 81001; 82140; 82270; 82607; 82728; 82746; 82948; 83540; 83550; 83615; 83735; 84100; 84145; 85014; 85018; 85025; 85045; 85610; 85730; 86850; 86900; 86901; 86923; 93005; 99291; G0378; J0885; J1756; J2704; J3430; J3475; J7030; P9016

== ENCOUNTER → 2020-06-16 | Outpatient (CLI) | payer OTHER ==
[~2020-06-16] MED LIST changes: +FURO40TA5 PO; -FURO40TA7 PO; -LEVO500T2 PO; +METF-444 PO; +SPIR100T5 PO; -SPIR50TA5 PO; +TAMS-1 PO; -TYL3 PO
== END | disposition home or self-care (01) ==
LOC: RAH 08:32
PROVIDERS: ATTEND Internal Medicine Gastroenterology
DX: K76.89 Other specified diseases of liver (principal); K80.20 Calculus of gallbladder without cholecystitis without obstruction; K74.60 Unspecified cirrhosis of liver
CPT/HCPCS: 76700; 93975

== ENCOUNTER → 2021-01-12 | Outpatient (CLI) | payer OTHER ==
[~2021-01-12] MED LIST changes: -LACT10SO PO; +LACT10SO5 PO
== END | disposition home or self-care (01) ==
LOC: RAH 08:44
PROVIDERS: ATTEND Internal Medicine Gastroenterology
DX: K80.20 Calculus of gallbladder without cholecystitis without obstruction (principal); R16.1 Splenomegaly, not elsewhere classified; K74.60 Unspecified cirrhosis of liver
CPT/HCPCS: 76700; 93975

== ENCOUNTER 2021-07-18 09:00 | Day surgery (SDC) | payer MEDICARE ==
[2021-07-18] VITALS (15 sets, daily range): BP systolic 116–141; BP diastolic 70–83
[~2021-07-18] VITALS: Ht 165.1 cm; Wt 80.3 kg
[~2021-07-18 09:00] MED LIST changes: +0.9%NACL 1000ML 1,000 ML IV ONE
[2021-07-18] MEDS ORDERED: FERS325 PO (10:12)
[2021-07-18] MEDS ORDERED: OMEP20CA12 PO (10:12)
[2021-07-18] MEDS ORDERED: LIDOCAINE HCL 400MG/20ML VIAL ONE (10:32)
== END 2021-07-18 13:15 | disposition home or self-care (01) ==
LOC: DAH 09:00
PROVIDERS: ATTEND Internal Medicine Gastroenterology
DX: D50.9 Iron deficiency anemia, unspecified (principal); K55.20 Angiodysplasia of colon without hemorrhage; K64.8 Other hemorrhoids; K21.00 Gastro-esophageal reflux disease with esophagitis, without bleeding; Z86.010 Personal history of colon polyps; I85.10 Secondary esophageal varices without bleeding; K74.60 Unspecified cirrhosis of liver; K29.50 Unspecified chronic gastritis without bleeding; Z79.899 Other long term (current) drug therapy; Z20.822 Contact with and (suspected) exposure to COVID-19
CPT/HCPCS: 43239; 43244; 45382; 87635; 88305; 88342; A4215 ×2; A4221; A4222; A4223; A4606; A4620; A4657; A4663; C9803; J3490; J7030

== ENCOUNTER 2021-12-26 09:37 | Inpatient (IN) | payer MEDICARE, OTHER ==
[~2021-12-26] VITALS: Ht 165.1 cm; Wt 83.0 kg
[~2021-12-26 09:37] MED LIST changes: -0.9%NACL 1000ML 1,000 ML IV ONE; +FERS325 PO; -METF-444 PO; +OMEP20CA12 PO; -THIA100T91 PO
[2021-12-26 10:01] LABS: BASOPHILS % (AUTO) 0.5 % (0.0-5.0); EOSINOPHILS % (AUTO) 0.6 % (0.0-8.0); HEMATOCRIT 27.1 % (42-54); LYMPHOCYTES % (AUTO) 26.4 % (21.0-51.0); MEAN CORPUSCULAR HEMOGLOBIN 25.4 pg (27.0-33.0); MEAN CORPUSCULAR VOLUME 81.9 fL (79-99); MONOCYTES % (AUTO) 7.9 % (3.0-13.0); NEUTROPHILS % (AUTO) 63.5 % (40.0-77.0); PLATELET COUNT (AUTO) 79 K/uL (130-400); RED BLOOD CELL COUNT(AUTO) 3.31 MIL/uL (4.50-6.20); WHITE BLOOD COUNT (AUTO) 6.2 K/uL (4.8-10.8)
[2021-12-26 10:09] LABS: CREATININE 0.8 mg/dL (0.5-1.5)
[2021-12-26 10:14] LABS: ALBUMIN 2.2 g/dL (3.5-5.0); BILIRUBIN,TOTAL 6.5 mg/dL (0.2-1.0); TOTAL PROTEIN, SERUM 6.4 g/dL (6.0-8.3)
[2021-12-26] MEDS ORDERED: OCTREOTIDE ACETATE 500 MCG in 0.9%NACL 100ML 97.5 ML IV SCH (10:30)
[2021-12-26] MEDS ORDERED: PANTOPRAZOLE 40 MG/VIAL IVP SCH (10:30)
[2021-12-26] MEDS ORDERED: PANTOPRAZOLE 40 MG/VIAL ONE (10:33)
[2021-12-26] MEDS ORDERED: OCTREOTIDE ACETATE 1,250 MCG in 0.9% NACL 250ML 250 ML IV SCH (11:30)
[2021-12-26] MEDS ORDERED: DEXTROSE 5 % AND 0.9 % NACL 1,000 ML IV SCH (11:30)
[2021-12-26] MEDS ORDERED: LACTULOSE 20 GM/30 ML UDCUP PO PRN (11:30)
[2021-12-26 12:00] LABS: HEMATOCRIT 24.3 % (42-54)
[2021-12-26] MEDS ORDERED: COMPOUND IV MISC 1 EACH IVSOLN MISC PRN (12:00)
[2021-12-26] MEDS: OCTREOTIDE ACETATE 100 MCG/ML AMP IV SCH (12:14)
[2021-12-26 12:18] LABS: ALCOHOL, BLOOD < 3 mg/dL (0-10)
[2021-12-26] MEDS ORDERED: 0.9%NACL 50ML 50 ML IV ONE (12:19)
[2021-12-26] MEDS: CEFTRIAXONE 2GM VIAL IVP SCH (12:45)
[2021-12-26] MEDS: LACTULOSE 20 GM/30 ML UDCUP PO SCH ×2 (12:45→21:06)
[2021-12-26] MEDS: PANTOPRAZOLE 40MG INJ 80 MG in 0.9%NACL 100ML 100 ML IVP SCH ×2 (12:45→22:07)
[2021-12-26 12:47] LABS: INR 1.69 (0.85-1.15); PARTIAL THROMBOPLASTIN TIME 32.9 SEC (26.3-35.5)
[2021-12-26] MEDS ORDERED: ONDANSETRON 4MG INJ IVP PRN (13:30)
[2021-12-26 15:36] LABS: HEMATOCRIT 23.6 % (42-54)
[2021-12-26 17:29] LABS: APPEARANCE,URINE Clear (CLEAR); BILIRUBIN,URINE Moderate (NEGATIVE); COLOR,URINE Orange (YELLOW); GLUCOSE, URINE (UA) Negative (NEGATIVE); KETONES,URINE Trace mg/dL (NEGATIVE); LEUKOCYTE ESTERASE ,URINE Moderate (NEGATIVE); NITRATE,URINE Positive (NEGATIVE); OCCULT BLOOD,URINE Negative (NEGATIVE); PH,URINE 5.5 (5.0-8.0); PROTEIN,URINE Negative (NEGATIVE)
[2021-12-26 17:36] LABS: AMPHET/METH SCREEN,URINE NEGATIVE (NEGATIVE); BARBITURATE SCREEN, URINE NEGATIVE (NEGATIVE); BENZODIAZEPINES SCREEN,URINE NEGATIVE (NEGATIVE); CANNABINOID SCREEN,URINE NEGATIVE (NEGATIVE); COCAINE SCREEN,URINE NEGATIVE (NEGATIVE); OPIATE SCREEN,URINE NEGATIVE (NEGATIVE); PHENCYCLIDINE SCREEN,URINE NEGATIVE (NEGATIVE)
[2021-12-26 17:39] LABS: BACTERIA,URINE Few /HPF (None Seen); RBC,URINE 0-1 /HPF (0-1); SQUAMOUS EPITHELIAL CELL,UR Few /HPF (0-2)
[2021-12-26 17:40] LABS: MUCUS,URINE Few LPF (None Seen)
[2021-12-26] MEDS ORDERED: PHYTONADIONE 10 MG in 0.9%NACL 50ML 50 ML IVPB ONE (18:30)
[2021-12-26] MEDS: RIFAXIMIN 550 MG TABLET PO SCH (21:07)
[2021-12-26 23:17] LABS: HEMATOCRIT 23.9 % (42-54)
[2021-12-27] VITALS (19 sets, daily range): BP systolic 96–124; BP diastolic 51–74
[2021-12-27] MEDS: LACTULOSE 20 GM/30 ML UDCUP PO SCH ×4 (03:26→23:48)
[2021-12-27 05:27] LABS: HEMATOCRIT 19.9 % (42-54)
[2021-12-27] MEDS: PANTOPRAZOLE 40MG INJ 80 MG in 0.9%NACL 100ML 100 ML IVP SCH ×3 (07:30→23:48)
[2021-12-27] MEDS: RIFAXIMIN 550 MG TABLET PO SCH ×2 (09:00→19:09)
[2021-12-27 10:23] LABS: ALBUMIN 1.8 g/dL (3.5-5.0); BILIRUBIN,TOTAL 5.5 mg/dL (0.2-1.0); CREATININE 0.8 mg/dL (0.5-1.5); POTASSIUM 3.7 mmol/L (3.5-5.1); TOTAL PROTEIN, SERUM 5.5 g/dL (6.0-8.3)
[2021-12-27 11:16] LABS: BASOPHILS % (AUTO) 0.3 % (0.0-5.0); EOSINOPHILS % (AUTO) 3.6 % (0.0-8.0); HEMATOCRIT 24.1 % (42-54); LYMPHOCYTES % (AUTO) 23.4 % (21.0-51.0); MEAN CORPUSCULAR HGB CONC 30.7 g/dL (32.0-36.0); MEAN CORPUSCULAR VOLUME 84.6 fL (79-99); MONOCYTES % (AUTO) 6.1 % (3.0-13.0); NUCLEATED RED BLOOD CELLS 0.6 % (0.0-0.19); PLATELET COUNT (AUTO) 62 K/uL (130-400); RED BLOOD CELL COUNT(AUTO) 2.85 MIL/uL (4.50-6.20); WHITE BLOOD COUNT (AUTO) 3.6 K/uL (4.8-10.8)
[2021-12-27] MEDS: OCTREOTIDE ACETATE 100 MCG/ML AMP IV SCH (11:30)
[2021-12-27] MEDS: CEFTRIAXONE 2GM VIAL IVP SCH (18:38)
[2021-12-27 20:18] LABS: HEMATOCRIT 24.3 % (42-54)
[2021-12-28] VITALS (22 sets, daily range): BP systolic 104–145; BP diastolic 58–87
[2021-12-28 03:43] LABS: BASOPHILS % (AUTO) 0.9 % (0.0-5.0); EOSINOPHILS % (AUTO) 5.4 % (0.0-8.0); HEMATOCRIT 23.3 % (42-54); LYMPHOCYTES % (AUTO) 28.8 % (21.0-51.0); MEAN CORPUSCULAR HEMOGLOBIN 26.2 pg (27.0-33.0); MEAN CORPUSCULAR HGB CONC 30.5 g/dL (32.0-36.0); MONOCYTES % (AUTO) 6.9 % (3.0-13.0); NEUTROPHILS % (AUTO) 57.7 % (40.0-77.0); NUCLEATED RED BLOOD CELLS 0.6 % (0.0-0.19); PLATELET COUNT (AUTO) 59 K/uL (130-400); RED BLOOD CELL COUNT(AUTO) 2.71 MIL/uL (4.50-6.20); WHITE BLOOD COUNT (AUTO) 3.3 K/uL (4.8-10.8)
[2021-12-28 04:01] LABS: ALBUMIN 1.6 g/dL (3.5-5.0); BILIRUBIN,TOTAL 4.9 mg/dL (0.2-1.0); CREATININE 0.8 mg/dL (0.5-1.5); POTASSIUM 3.6 mmol/L (3.5-5.1); TOTAL PROTEIN, SERUM 5.3 g/dL (6.0-8.3)
[2021-12-28] MEDS: RIFAXIMIN 550 MG TABLET PO SCH ×2 (07:44→20:16)
[2021-12-28] MEDS: OCTREOTIDE ACETATE 100 MCG/ML AMP IV SCH (07:44)
[2021-12-28] MEDS: LACTULOSE 20 GM/30 ML UDCUP PO SCH ×2 (12:00→20:16)
[2021-12-28] MEDS: CEFTRIAXONE 2GM VIAL IVP SCH (12:21)
[2021-12-28] MEDS ORDERED: PROPOFOL 10 MG/ML 20ML VIAL IV ONE ×2 (13:20→13:27)
[2021-12-28 16:02] LABS: HEMATOCRIT 29.4 % (42-54)
[2021-12-28] MEDS ORDERED: MORPHINE 2 MG SYG ONE (16:26)
[2021-12-28] MEDS ORDERED: MORPHINE 2 MG SYG IM ONE (16:30)
[2021-12-28] MEDS ORDERED: MORPHINE 2 MG SYG IVP SCH (17:00)
[2021-12-28] MEDS: PANTOPRAZOLE 40 MG TAB DR PO SCH (20:16)
[2021-12-29 03:46] VITALS: BP 109/67
[2021-12-29 04:18] LABS: BASOPHILS % (AUTO) 0.4 % (0.0-5.0); EOSINOPHILS % (AUTO) 4.2 % (0.0-8.0); HEMATOCRIT 24.3 % (42-54); LYMPHOCYTES % (AUTO) 20.8 % (21.0-51.0); MEAN CORPUSCULAR HEMOGLOBIN 26.5 pg (27.0-33.0); MEAN CORPUSCULAR HGB CONC 30.9 g/dL (32.0-36.0); MEAN CORPUSCULAR VOLUME 85.9 fL (79-99); MONOCYTES % (AUTO) 6.1 % (3.0-13.0); NEUTROPHILS % (AUTO) 68.1 % (40.0-77.0); PLATELET COUNT (AUTO) 54 K/uL (130-400); RED BLOOD CELL COUNT(AUTO) 2.83 MIL/uL (4.50-6.20); WHITE BLOOD COUNT (AUTO) 4.7 K/uL (4.8-10.8)
[2021-12-29 04:31] LABS: ALBUMIN 1.7 g/dL (3.5-5.0); BILIRUBIN,TOTAL 4.7 mg/dL (0.2-1.0); CREATININE 0.8 mg/dL (0.5-1.5); POTASSIUM 3.5 mmol/L (3.5-5.1); TOTAL PROTEIN, SERUM 5.2 g/dL (6.0-8.3)
[2021-12-29 07:30] VITALS: BP 119/69
[2021-12-29] MEDS: OCTREOTIDE ACETATE 100 MCG/ML AMP IV SCH (08:42)
[2021-12-29] MEDS: PANTOPRAZOLE 40 MG TAB DR PO SCH (09:16)
[2021-12-29] MEDS: RIFAXIMIN 550 MG TABLET PO SCH (09:16)
[2021-12-29] MEDS: LACTULOSE 20 GM/30 ML UDCUP PO SCH (09:16)
[2021-12-29] MEDS ORDERED: PANT40TA PO (10:03)
[2021-12-29 11:00] VITALS: BP 112/65
[2021-12-29] MEDS: CEFTRIAXONE 2GM VIAL IVP SCH (14:18)
== END 2021-12-29 16:30 | disposition home or self-care (01) | DRG 432 ==
LOC: EDH 09:37 → EDHIP 11:27 → 2BH 12-27 02:12 → 4CH 12-28 08:30
PROVIDERS: ADMIT Internal Medicine; ATTEND Internal Medicine
PROC: 30233N1 Transfusion of Nonautologous Red Blood Cells into Peripheral Vein, Percutaneous Approach (ICD-10-PCS; 2021-12-27)
PROC: 06L38CZ Occlusion of Esophageal Vein with Extraluminal Device, Via Natural or Artificial Opening Endoscopic (ICD-10-PCS; principal; 2021-12-28)
DX: K70.31 Alcoholic cirrhosis of liver with ascites (principal); K21.01 Gastro-esophageal reflux disease with esophagitis, with bleeding; K29.01 Acute gastritis with bleeding; D62 Acute posthemorrhagic anemia; I85.10 Secondary esophageal varices without bleeding; K76.6 Portal hypertension; D68.9 Coagulation defect, unspecified; K72.90 Hepatic failure, unspecified without coma; Z20.822 Contact with and (suspected) exposure to COVID-19; K31.89 Other diseases of stomach and duodenum; N40.0 Benign prostatic hyperplasia without lower urinary tract symptoms; E11.9 Type 2 diabetes mellitus without complications; D69.6 Thrombocytopenia, unspecified; Z83.3 Family history of diabetes mellitus; Z82.49 Family history of ischemic heart disease and other diseases of the circulatory system; Z87.891 Personal history of nicotine dependence; D73.1 Hypersplenism; K40.90 Unilateral inguinal hernia, without obstruction or gangrene, not specified as recurrent; K57.30 Diverticulosis of large intestine without perforation or abscess without bleeding
CPT/HCPCS: 36415; 36430; 43244; 71045; 74176; 76705; 80053; 80305; 81001; 82140; 82270; 83605; 83690; 83735; 83880; 84145; 85014; 85018; 85025; 85610; 85651; 85730; 86140; 86677; 86850; 86900; 86901; 86923; 87040; 87088; 87635; 99291; C9113; G0378; J0696; J2354; J2704; J3430; J7042; J7050; P9016

== ENCOUNTER 2022-06-03 07:42 | Inpatient (IN) | payer OTHER ==
[~2022-06-03] VITALS: Ht 165.1 cm; Wt 82.9 kg
[~2022-06-03 07:42] MED LIST changes: -OMEP20CA12 PO; +PANT40TA PO
[2022-06-03 08:44] LABS: BASOPHILS % (AUTO) 0.1 % (0.0-5.0); EOSINOPHILS % (AUTO) 0.4 % (0.0-8.0); HEMATOCRIT 21.2 % (42-54); LYMPHOCYTES % (AUTO) 8.2 % (21.0-51.0); MEAN CORPUSCULAR HEMOGLOBIN 31.6 pg (27.0-33.0); MEAN CORPUSCULAR HGB CONC 32.1 g/dL (32.0-36.0); MEAN CORPUSCULAR VOLUME 98.6 fL (79-99); MONOCYTES % (AUTO) 10.2 % (3.0-13.0); NUCLEATED RED BLOOD CELLS 0.2 % (0.0-0.19); PLATELET COUNT (AUTO) 70 K/uL (130-400); RED BLOOD CELL COUNT(AUTO) 2.15 MIL/uL (4.50-6.20); RED CELL DISTRIBUTION WIDTH 19.1 % (11.0-15.5); WHITE BLOOD COUNT (AUTO) 8.2 K/uL (4.8-10.8)
[2022-06-03 08:54] LABS: CREATININE 1.1 mg/dL (0.5-1.5); POTASSIUM 3.6 mmol/L (3.5-5.1)
[2022-06-03 08:59] LABS: ALBUMIN 1.9 g/dL (3.5-5.0); TOTAL PROTEIN, SERUM 6.8 g/dL (6.0-8.3)
[2022-06-03 10:26] LABS: PLATELET MORPHOLOGY COMMENT DECREASED
[2022-06-03] MEDS ORDERED: ACETAMINOPHEN 650 MG SUPPOSITORY RC PRN (16:00)
[2022-06-03] MEDS ORDERED: VANCOMYCIN PROTOCOL PER PHARMACY IV SCH (16:00)
[2022-06-03] MEDS: INSULIN HUMULIN R 100 UNIT/ML 3ML SQ SCH ×2 (16:30→21:00)
[2022-06-03] MEDS: ZOSYN 3.375GM +NS 50ML IV SCH (16:39)
[2022-06-03] MEDS: LACTATED RINGERS 1000ML 1,000 ML IV SCH (16:39)
[2022-06-03] MEDS ORDERED: VANCOMYCIN 1.5GM/NS 250ML IV ONE ×2 (17:00)
[2022-06-03] MEDS: ACETAMINOPHEN 325 MG TAB PO PRN (20:22)
[2022-06-03 22:00] VITALS: BP 106/66
[2022-06-04] VITALS (16 sets, daily range): BP systolic 97–129; BP diastolic 56–76
[2022-06-04] MEDS: ZOSYN 3.375GM +NS 50ML IV SCH ×3 (00:22→17:51)
[2022-06-04] MEDS: LACTATED RINGERS 1000ML 1,000 ML IV SCH (04:31)
[2022-06-04 05:44] LABS: BASOPHILS % (AUTO) 0.3 % (0.0-5.0); CREATININE 1.2 mg/dL (0.5-1.5); EOSINOPHILS % (AUTO) 0.6 % (0.0-8.0); HEMATOCRIT 26.9 % (42-54); LYMPHOCYTES % (AUTO) 12.1 % (21.0-51.0); MEAN CORPUSCULAR HEMOGLOBIN 31.2 pg (27.0-33.0); MEAN CORPUSCULAR VOLUME 97.5 fL (79-99); MONOCYTES % (AUTO) 11.7 % (3.0-13.0); NEUTROPHILS % (AUTO) 74.4 % (40.0-77.0); NUCLEATED RED BLOOD CELLS 0.3 % (0.0-0.19); PLATELET COUNT (AUTO) 90 K/uL (130-400); POTASSIUM 3.5 mmol/L (3.5-5.1); RED BLOOD CELL COUNT(AUTO) 2.76 MIL/uL (4.50-6.20); RED CELL DISTRIBUTION WIDTH 20.3 % (11.0-15.5); WHITE BLOOD COUNT (AUTO) 7.8 K/uL (4.8-10.8)
[2022-06-04] MEDS: INSULIN HUMULIN R 100 UNIT/ML 3ML SQ SCH ×4 (05:49→21:00)
[2022-06-04] MEDS ORDERED: POTASSIUM CHLORIDE 20MEQ/100ML 100 ML IV PRN (06:00)
[2022-06-04] MEDS ORDERED: POTASSIUM CHLORIDE 10% ELIXIR 20 MEQ/15 ML UDCUP PO PRN (06:00)
[2022-06-04] MEDS ORDERED: LIDOCAINE HCL-MPF 1% 2ML VIAL IV PRN (06:00)
[2022-06-04] MEDS: KCL 20 MEQ ERTAB PO PRN ×2 (06:10→17:52)
[2022-06-04] MEDS ORDERED: PANTOPRAZOLE 40 MG TAB DR PO SCH (09:00)
[2022-06-04] MEDS ORDERED: ENOXAPARIN SODIUM 40 MG/0.4 ML SYRINGE SQ SCH (09:00)
[2022-06-04] MEDS: ACETAMINOPHEN 325 MG TAB PO PRN (09:33)
[2022-06-04] MEDS: VANCOMYCIN 750MG VIAL IVPB SCH ×2 (09:55→21:16)
[2022-06-04] MEDS ORDERED: VANCOMYCIN 750MG VIAL IVPB SCH (13:30)
[2022-06-04] MEDS ORDERED: LIDOCAINE HCL MPF 1% 5ML VIAL ONE (15:24)
[2022-06-04 15:41] LABS: INR 2.36 (0.85-1.15); PROTHROMBIN TIME 24.5 SEC (9.6-11.6)
[2022-06-04] MEDS ORDERED: ALBUMIN (HUMAN) 25% 300 ML IV ONE (16:30)
[2022-06-04] MEDS: FUROSEMIDE 40MG VIAL IV SCH (17:51)
[2022-06-04] MEDS: PANTOPRAZOLE 40 MG/VIAL IVP SCH (21:16)
[2022-06-04] MEDS: LACTULOSE 20 GM/30 ML UDCUP PO SCH (21:17)
[2022-06-04] MEDS: 0.9% NACL 250ML 250 ML IV SCH (21:17)
[2022-06-04 21:46] LABS: APPEARANCE BODY FLUID CLEAR (CLEAR); COLOR,BODY FLUID YELLOW (LT YELLOW); SPECIMENTYPE,BODY FLUID ASCITES
[2022-06-04 21:47] LABS: BODY FLUID RBC 368 /cu. mm.; BODY FLUID WBC 30 /cu. mm.; TOTAL VOLUME,BODY FLUID 11600 mL
[2022-06-04 21:50] LABS: BF LYMPHOCYTE 4 %; BF OTHER CELLS 3
[2022-06-05] VITALS (7 sets, daily range): BP systolic 100–119; BP diastolic 54–86
[2022-06-05] MEDS: ZOSYN 3.375GM +NS 50ML IV SCH ×3 (00:52→17:29)
[2022-06-05 03:48] LABS: CREATININE 1.1 mg/dL (0.5-1.5); POTASSIUM 3.2 mmol/L (3.5-5.1)
[2022-06-05 04:49] LABS: MEAN CORPUSCULAR HEMOGLOBIN 30.7 pg (27.0-33.0); MEAN CORPUSCULAR HGB CONC 32.2 g/dL (32.0-36.0); MEAN CORPUSCULAR VOLUME 95.3 fL (79-99); RED BLOOD CELL COUNT(AUTO) 2.12 MIL/uL (4.50-6.20); RED CELL DISTRIBUTION WIDTH 19.9 % (11.0-15.5); WHITE BLOOD COUNT (AUTO) 3.3 K/uL (4.8-10.8)
[2022-06-05] MEDS: FUROSEMIDE 40MG VIAL IV SCH ×2 (05:08→13:28)
[2022-06-05] MEDS: LACTATED RINGERS 1000ML 1,000 ML IV SCH (05:09)
[2022-06-05 05:15] LABS: HEMATOCRIT 20.2 % (42-54)
[2022-06-05] MEDS: INSULIN HUMULIN R 100 UNIT/ML 3ML SQ SCH ×4 (07:30→20:31)
[2022-06-05] MEDS: PANTOPRAZOLE 40 MG/VIAL IVP SCH ×2 (09:02→20:43)
[2022-06-05] MEDS: SPIRONOLACTONE 25 MG TAB PO SCH (09:02)
[2022-06-05] MEDS: VANCOMYCIN 750MG VIAL IVPB SCH ×2 (09:02→21:13)
[2022-06-05] MEDS: FOLIC ACID 1 MG TABLET PO SCH (09:03)
[2022-06-05] MEDS: LACTULOSE 20 GM/30 ML UDCUP PO SCH ×3 (09:03→20:43)
[2022-06-05] MEDS: FERROUS SULFATE 325 MG TABLET.DR PO SCH (09:03)
[2022-06-05] MEDS: TAMSULOSIN HCL 0.4 MG CAP.ER.24H PO SCH (09:03)
[2022-06-05 11:10] LABS: HEMATOCRIT 27.7 % (42-54)
[2022-06-05] MEDS ORDERED: ONDANSETRON 4MG INJ IVP PRN (13:30)
[2022-06-05] MEDS ORDERED: ACETAMINOPHEN WITH CODEINE 1 TAB TAB PO PRN (13:30)
[2022-06-05] MEDS ORDERED: LIDOCAINE HCL MPF 1% 5ML VIAL ONE (13:49)
[2022-06-05 20:43] LABS: HEMATOCRIT 22.8 % (42-54)
[2022-06-05] MEDS: 0.9% NACL 250ML 250 ML IV SCH (21:14)
[2022-06-06] MEDS: ZOSYN 3.375GM +NS 50ML IV SCH ×4 (00:56→23:33)
[2022-06-06] MEDS: FUROSEMIDE 40MG VIAL IV SCH ×2 (03:28→15:11)
[2022-06-06 04:13] LABS: APPEARANCE,URINE CLEAR (CLEAR); BILIRUBIN,URINE NEGATIVE (NEGATIVE); COLOR,URINE YELLOW (YELLOW); GLUCOSE, URINE (UA) NEGATIVE (NEGATIVE); KETONES,URINE NEGATIVE (NEGATIVE); LEUKOCYTE ESTERASE ,URINE NEGATIVE Leu/uL (NEGATIVE); NITRATE,URINE NEGATIVE (NEGATIVE); OCCULT BLOOD,URINE NEGATIVE (NEGATIVE); PH,URINE 5.5 (5.0-8.0); PROTEIN,URINE NEGATIVE (NEGATIVE)
[2022-06-06 04:35] VITALS: BP 103/53
[2022-06-06 04:38] LABS: MEAN CORPUSCULAR HEMOGLOBIN 30.8 pg (27.0-33.0); MEAN CORPUSCULAR HGB CONC 32.5 g/dL (32.0-36.0); MEAN CORPUSCULAR VOLUME 94.9 fL (79-99); RED BLOOD CELL COUNT(AUTO) 2.53 MIL/uL (4.50-6.20); RED CELL DISTRIBUTION WIDTH 19.6 % (11.0-15.5); WHITE BLOOD COUNT (AUTO) 3.9 K/uL (4.8-10.8)
[2022-06-06 04:52] LABS: CREATININE 1.2 mg/dL (0.5-1.5); POTASSIUM 3.7 mmol/L (3.5-5.1)
[2022-06-06] MEDS: INSULIN HUMULIN R 100 UNIT/ML 3ML SQ SCH ×4 (07:30→21:00)
[2022-06-06 08:00] VITALS: BP 96/53
[2022-06-06] MEDS: PANTOPRAZOLE 40 MG/VIAL IVP SCH ×2 (08:32→21:06)
[2022-06-06] MEDS: FERROUS SULFATE 325 MG TABLET.DR PO SCH (08:32)
[2022-06-06] MEDS: TAMSULOSIN HCL 0.4 MG CAP.ER.24H PO SCH (08:32)
[2022-06-06] MEDS: LACTULOSE 20 GM/30 ML UDCUP PO SCH ×3 (08:32→21:05)
[2022-06-06] MEDS: VANCOMYCIN 750MG VIAL IVPB SCH ×2 (08:32→21:06)
[2022-06-06] MEDS: FOLIC ACID 1 MG TABLET PO SCH (08:32)
[2022-06-06] MEDS: SPIRONOLACTONE 25 MG TAB PO SCH (08:32)
[2022-06-06 12:00] VITALS: BP 97/50
[2022-06-06 16:00] VITALS: BP 97/59
[2022-06-06] MEDS ORDERED: PEG 3350/NA SULF,BICARB,CL/KCL 4000 ML SOLN PO SCH (16:00)
[2022-06-06 20:41] VITALS: BP 107/59
[2022-06-06 23:52] VITALS: BP 103/61
[2022-06-07] VITALS (19 sets, daily range): BP systolic 90–108; BP diastolic 51–66
[2022-06-07] MEDS: FUROSEMIDE 40MG VIAL IV SCH ×2 (03:29→15:24)
[2022-06-07 04:23] LABS: HEMATOCRIT 21.9 % (42-54); MEAN CORPUSCULAR HEMOGLOBIN 30.9 pg (27.0-33.0); MEAN CORPUSCULAR HGB CONC 32.4 g/dL (32.0-36.0); MEAN CORPUSCULAR VOLUME 95.2 fL (79-99); RED BLOOD CELL COUNT(AUTO) 2.3 MIL/uL (4.50-6.20); RED CELL DISTRIBUTION WIDTH 19.4 % (11.0-15.5); WHITE BLOOD COUNT (AUTO) 3.3 K/uL (4.8-10.8)
[2022-06-07 04:34] LABS: POTASSIUM 3.2 mmol/L (3.5-5.1)
[2022-06-07] MEDS: INSULIN HUMULIN R 100 UNIT/ML 3ML SQ SCH ×4 (06:45→21:00)
[2022-06-07] MEDS: LACTULOSE 20 GM/30 ML UDCUP PO SCH ×3 (08:45→21:00)
[2022-06-07] MEDS: FERROUS SULFATE 325 MG TABLET.DR PO SCH (08:46)
[2022-06-07] MEDS: FOLIC ACID 1 MG TABLET PO SCH (08:46)
[2022-06-07] MEDS: TAMSULOSIN HCL 0.4 MG CAP.ER.24H PO SCH (08:46)
[2022-06-07] MEDS: SPIRONOLACTONE 25 MG TAB PO SCH (08:46)
[2022-06-07] MEDS: PANTOPRAZOLE 40 MG/VIAL IVP SCH ×2 (08:53→21:43)
[2022-06-07] MEDS: ZOSYN 3.375GM +NS 50ML IV SCH ×2 (08:53→15:23)
[2022-06-07] MEDS: VANCOMYCIN 750MG VIAL IVPB SCH ×2 (08:53→21:42)
[2022-06-07] MEDS ORDERED: PROPOFOL 10 MG/ML 20ML VIAL IV ONE (11:30)
[2022-06-07] MEDS ORDERED: FENTANYL CITRATE PF 50 MCG/1 ML 2ML VIAL ONE (11:30)
[2022-06-07] MEDS ORDERED: LIDOCAINE PF 100MG/5ML (2%) SYRINGE 5ML ONE (11:32)
[2022-06-07] MEDS ORDERED: PHENYLEPHRINE HCL 10 MG/ML 1ML VIAL IV ONE (11:39)
[2022-06-07] MEDS: KCL 20 MEQ ERTAB PO PRN ×2 (15:30→17:26)
[2022-06-07 20:30] LABS: MAGNESIUM 1.6 mg/dL (1.80-2.40); POTASSIUM 3.5 mmol/L (3.5-5.1)
[2022-06-08 00:41] VITALS: BP 96/53
[2022-06-08] MEDS: ZOSYN 3.375GM +NS 50ML IV SCH ×3 (00:51→16:00)
[2022-06-08] MEDS: FUROSEMIDE 40MG VIAL IV SCH ×2 (03:15→15:17)
[2022-06-08 04:09] VITALS: BP 96/54
[2022-06-08 07:08] VITALS: BP 96/60
[2022-06-08] MEDS: INSULIN HUMULIN R 100 UNIT/ML 3ML SQ SCH ×3 (07:08→16:30)
[2022-06-08] MEDS: PANTOPRAZOLE 40 MG/VIAL IVP SCH (08:40)
[2022-06-08] MEDS: VANCOMYCIN 750MG VIAL IVPB SCH (08:51)
[2022-06-08] MEDS: 0.9% NACL 250ML 250 ML IV SCH (08:53)
[2022-06-08] MEDS: SPIRONOLACTONE 25 MG TAB PO SCH (08:54)
[2022-06-08] MEDS: FOLIC ACID 1 MG TABLET PO SCH (08:54)
[2022-06-08] MEDS: LACTULOSE 20 GM/30 ML UDCUP PO SCH ×2 (08:54→14:19)
[2022-06-08] MEDS: TAMSULOSIN HCL 0.4 MG CAP.ER.24H PO SCH (08:54)
[2022-06-08] MEDS: FERROUS SULFATE 325 MG TABLET.DR PO SCH (08:54)
[2022-06-08 12:00] VITALS: BP 97/58
[2022-06-08 16:00] VITALS: BP 106/60
[2022-06-08 16:27] LABS: HEMATOCRIT 25.3 % (42-54); MEAN CORPUSCULAR HEMOGLOBIN 30.8 pg (27.0-33.0); MEAN CORPUSCULAR VOLUME 96.2 fL (79-99); RED BLOOD CELL COUNT(AUTO) 2.63 MIL/uL (4.50-6.20); RED CELL DISTRIBUTION WIDTH 18.6 % (11.0-15.5); WHITE BLOOD COUNT (AUTO) 3.6 K/uL (4.8-10.8)
[2022-06-08 16:33] LABS: CREATININE 1.3 mg/dL (0.5-1.5); POTASSIUM 3.3 mmol/L (3.5-5.1)
== END 2022-06-08 19:18 | DRG 433 ==
LOC: EDH 07:42 → OBSVTOIN 15:24 → INTOOBSV 15:24 → EDHIP 15:24 → UNDOADMOB 15:24 → EDHIP 15:55 → OBSVTOIN 15:55 → EDHIP 21:36 → 4BH 21:36
PROVIDERS: ADMIT Internal Medicine Critical Care Medicine; ATTEND Internal Medicine Critical Care Medicine
PROC: 30233N1 Transfusion of Nonautologous Red Blood Cells into Peripheral Vein, Percutaneous Approach (ICD-10-PCS; 2022-06-03)
PROC: 0W9G3ZZ Drainage of Peritoneal Cavity, Percutaneous Approach (ICD-10-PCS; 2022-06-04)
PROC: 0DJD8ZZ Inspection of Lower Intestinal Tract, Via Natural or Artificial Opening Endoscopic (ICD-10-PCS; principal; 2022-06-07)
PROC: 0DB98ZX Excision of Duodenum, Via Natural or Artificial Opening Endoscopic, Diagnostic (ICD-10-PCS; 2022-06-07)
DX: K70.31 Alcoholic cirrhosis of liver with ascites (principal); D68.9 Coagulation defect, unspecified; L03.116 Cellulitis of left lower limb; E87.1 Hypo-osmolality and hyponatremia; I85.10 Secondary esophageal varices without bleeding; Z20.822 Contact with and (suspected) exposure to COVID-19; K21.9 Gastro-esophageal reflux disease without esophagitis; D64.9 Anemia, unspecified; E11.65 Type 2 diabetes mellitus with hyperglycemia; F10.21 Alcohol dependence, in remission; N40.0 Benign prostatic hyperplasia without lower urinary tract symptoms; Z87.19 Personal history of other diseases of the digestive system
CPT/HCPCS: 36415; 36430; 43239; 45378; 49083; 71045; 73562; 73700; 76705; 80048; 80053; 80202; 81003; 82140; 82270; 82948; 83605; 83735; 84132; 85014; 85018; 85025; 85027; 85378; 85610; 85730; 86850; 86900; 86901; 86923; 87071; 87205; 87635; 89051; 93926; 93971; 97039; A4606; C1729; C9113; G0378; J1815; J1940; J2001; J2370; J2405; J2543; J2704; J3010; J3370; J3480; J3490; J7050; J7120; P9016

== ENCOUNTER 2022-07-02 10:31 | Emergency (ER) | payer OTHER ==
[~2022-07-02] VITALS: Ht 165.1 cm; Wt 88.5 kg
[~2022-07-02 10:31] MED LIST changes: -PANT40TA PO
[2022-07-02 11:19] LABS: HEMATOCRIT 28.9 % (42-54); MEAN CORPUSCULAR HGB CONC 34.3 g/dL (32.0-36.0); MEAN CORPUSCULAR VOLUME 102.1 fL (79-99); PLATELET COUNT (AUTO) 60 K/uL (130-400); RED BLOOD CELL COUNT(AUTO) 2.83 MIL/uL (4.50-6.20); RED CELL DISTRIBUTION WIDTH 20.7 % (11.0-15.5); WHITE BLOOD COUNT (AUTO) 4.6 K/uL (4.8-10.8)
[2022-07-02 11:24] LABS: CREATININE 1.1 mg/dL (0.5-1.5); POTASSIUM 3.7 mmol/L (3.5-5.1)
[2022-07-02 11:29] LABS: ALBUMIN 2.3 g/dL (3.5-5.0); TOTAL PROTEIN, SERUM 7.3 g/dL (6.0-8.3)
[2022-07-02 11:37] VITALS: BP 103/70
[2022-07-02] MEDS ORDERED: AMOX-427 PO (12:21)
[2022-07-02 12:29] LABS: BASOPHILS % (MANUAL) 2 % (0-2); EOSINOPHILS % (MANUAL) 1 % (1-6); LYMPHOCYTES % (MANUAL) 15 % (22-44); MAN.DIFF COMMENT-IMPRESSION MANUAL DIFFERENTIAL; MONOCYTES % (MANUAL) 11 % (2-9); PLATELET MORPHOLOGY COMMENT DECREASED; SEGMENTED NEUTROPHILS % 71 % (40-70)
== END 2022-07-02 12:33 | disposition home or self-care (01) ==
LOC: EDH 10:31
DX: L97.229 Non-pressure chronic ulcer of left calf with unspecified severity (principal)
CPT/HCPCS: 36415; 73590; 80053; 85025

== ENCOUNTER 2022-07-13 09:56 | Emergency (ER) | payer OTHER ==
[~2022-07-13] VITALS: Ht 167.6 cm; Wt 91.8 kg
[~2022-07-13 09:56] MED LIST changes: +AMOX-427 PO
[2022-07-13] MEDS ORDERED: LIDOCAINE HCL 1% 20 ML VIAL ONE (11:07)
[2022-07-13] MEDS ORDERED: ALBUMIN (HUMAN) 25% 200 ML IV ONE (11:07)
[2022-07-13 11:12] LABS: POTASSIUM 3.7 mmol/L (3.5-5.1)
[2022-07-13 11:17] LABS: ALBUMIN 1.9 g/dL (3.5-5.0); TOTAL PROTEIN, SERUM 6.2 g/dL (6.0-8.3)
[2022-07-13 11:19] LABS: BASOPHILS % (AUTO) 0.6 % (0.0-5.0); EOSINOPHILS % (AUTO) 2.1 % (0.0-8.0); HEMATOCRIT 24.4 % (42-54); LYMPHOCYTES % (AUTO) 25.3 % (21.0-51.0); MEAN CORPUSCULAR HEMOGLOBIN 35.6 pg (27.0-33.0); MEAN CORPUSCULAR HGB CONC 34.8 g/dL (32.0-36.0); MEAN CORPUSCULAR VOLUME 102.1 fL (79-99); MONOCYTES % (AUTO) 12.5 % (3.0-13.0); NEUTROPHILS % (AUTO) 58.6 % (40.0-77.0); PLATELET COUNT (AUTO) 46 K/uL (130-400); RED BLOOD CELL COUNT(AUTO) 2.39 MIL/uL (4.50-6.20); RED CELL DISTRIBUTION WIDTH 17.6 % (11.0-15.5); WHITE BLOOD COUNT (AUTO) 3.3 K/uL (4.8-10.8)
[2022-07-13 12:06] LABS: INR 2.3 (0.85-1.15); PROTHROMBIN TIME 23.9 SEC (9.6-11.6)
[2022-07-13 12:07] LABS: PARTIAL THROMBOPLASTIN TIME 42.7 SEC (26.3-35.5)
[2022-07-13 13:01] VITALS: BP 93/57
== END 2022-07-13 13:02 | disposition home or self-care (01) ==
LOC: EDH 09:56
DX: R18.8 Other ascites (principal); Z79.899 Other long term (current) drug therapy; Z98.890 Other specified postprocedural states
CPT/HCPCS: 49083; 99285; 96365; 71046; 80053; 85025; 85610; 85730; 36415; 93005; P9046; C1729

== ENCOUNTER → 2022-08-03 | Outpatient (CLI) | payer OTHER ==
[~2022-08-03] MED LIST changes: +ALBUMIN (HUMAN) 25% 300 ML IV SCH; +LIDOCAINE HCL 1% 20 ML VIAL ONE
[2022-08-03 10:04] LABS: BASOPHILS % (AUTO) 0.7 % (0.0-5.0); EOSINOPHILS % (AUTO) 1.8 % (0.0-8.0); HEMATOCRIT 26.7 % (42-54); LYMPHOCYTES % (AUTO) 22.8 % (21.0-51.0); MEAN CORPUSCULAR HGB CONC 34.1 g/dL (32.0-36.0); MEAN CORPUSCULAR VOLUME 105.5 fL (79-99); MONOCYTES % (AUTO) 8.7 % (3.0-13.0); NEUTROPHILS % (AUTO) 65.2 % (40.0-77.0); PLATELET COUNT (AUTO) 54 K/uL (130-400); RED BLOOD CELL COUNT(AUTO) 2.53 MIL/uL (4.50-6.20); RED CELL DISTRIBUTION WIDTH 14.5 % (11.0-15.5)
[2022-08-03 10:18] LABS: INR 2.17 (0.85-1.15); PROTHROMBIN TIME 22.6 SEC (9.6-11.6)
[2022-08-03 10:32] LABS: ALBUMIN 2.7 g/dL (3.5-5.0); CREATININE 0.8 mg/dL (0.5-1.5); POTASSIUM 4.9 mmol/L (3.5-5.1); TOTAL PROTEIN, SERUM 6.6 g/dL (6.0-8.3)
[2022-08-03 12:52] LABS: ALBUMIN,BODY FLUID 0.4 g/dL
[2022-08-03 13:50] LABS: SPECIMENTYPE,BODY FLUID ASCITES
[2022-08-03 13:51] LABS: APPEARANCE BODY FLUID SLIGHTLY CLOUDY (CLEAR); COLOR,BODY FLUID YELLOW (LT YELLOW); TOTAL VOLUME,BODY FLUID 12200 mL
[2022-08-03 13:58] LABS: BODY FLUID WBC 79 /cu. mm.
[2022-08-03 13:59] LABS: BODY FLUID RBC 825 /cu. mm.
[2022-08-03 14:12] LABS: BF LYMPHOCYTE 53 %; BF MONOCYTE 42 %
== END | disposition home or self-care (01) ==
LOC: RAH 09:28
PROVIDERS: ATTEND Internal Medicine Gastroenterology
DX: R18.8 Other ascites (principal); K74.69 Other cirrhosis of liver; D50.9 Iron deficiency anemia, unspecified; K21.00 Gastro-esophageal reflux disease with esophagitis, without bleeding; Z72.89 Other problems related to lifestyle; Z98.890 Other specified postprocedural states; Z86.010 Personal history of colon polyps; Z79.01 Long term (current) use of anticoagulants; Z79.899 Other long term (current) drug therapy
CPT/HCPCS: 49083; 84157; 80053; 85025; 89051; 85610; 85730; 87071; 87076; 87205; 82042; 36415; P9046; C1729; 96365

== ENCOUNTER → 2022-08-10 | Outpatient (CLI) | payer OTHER ==
[~2022-08-10] MED LIST changes: +ALBUMIN (HUMAN) 25% 200 ML IV SCH
[2022-08-10 13:05] LABS: ALBUMIN,BODY FLUID 0.5 g/dL
[2022-08-10 13:38] LABS: APPEARANCE BODY FLUID CLEAR (CLEAR); COLOR,BODY FLUID YELLOW (LT YELLOW); SPECIMENTYPE,BODY FLUID ASCITES; TOTAL VOLUME,BODY FLUID 6000 mL
[2022-08-10 13:39] LABS: BODY FLUID RBC 626 /cu. mm.; BODY FLUID WBC 63 /cu. mm.
[2022-08-10 14:11] LABS: BF LYMPHOCYTE 15 %; BF MESOTHELIAL 56 %; BF MONOCYTE 2 %
== END | disposition home or self-care (01) ==
LOC: RAH 09:45
PROVIDERS: ATTEND Internal Medicine Gastroenterology
DX: R18.8 Other ascites (principal); K74.69 Other cirrhosis of liver; I50.9 Heart failure, unspecified; K21.00 Gastro-esophageal reflux disease with esophagitis, without bleeding; Z72.89 Other problems related to lifestyle; Z98.890 Other specified postprocedural states; Z86.010 Personal history of colon polyps; Z79.01 Long term (current) use of anticoagulants; Z79.899 Other long term (current) drug therapy
CPT/HCPCS: 49083; 84157; 89051; 87071; 87076; 87205; 82042; C1729; P9046

== ENCOUNTER → 2022-09-07 | Outpatient (CLI) | payer OTHER ==
[~2022-09-07] MED LIST changes: -ALBUMIN (HUMAN) 25% 200 ML IV SCH
[2022-09-07 09:00] LABS: EOSINOPHILS % (AUTO) 2.4 % (0.0-8.0); HEMATOCRIT 31.9 % (42-54); LYMPHOCYTES % (AUTO) 16.1 % (21.0-51.0); MEAN CORPUSCULAR HEMOGLOBIN 33.9 pg (27.0-33.0); MEAN CORPUSCULAR HGB CONC 33.9 g/dL (32.0-36.0); MONOCYTES % (AUTO) 10.5 % (3.0-13.0); NEUTROPHILS % (AUTO) 70.7 % (40.0-77.0); PLATELET COUNT (AUTO) 70 K/uL (130-400); RED BLOOD CELL COUNT(AUTO) 3.19 MIL/uL (4.50-6.20); RED CELL DISTRIBUTION WIDTH 13.8 % (11.0-15.5); WHITE BLOOD COUNT (AUTO) 6.2 K/uL (4.8-10.8)
[2022-09-07 09:21] LABS: INR 1.86 (0.85-1.15); PROTHROMBIN TIME 19.6 SEC (9.6-11.6)
[2022-09-07 09:22] LABS: PARTIAL THROMBOPLASTIN TIME 37.9 SEC (26.3-35.5)
[2022-09-07 09:23] LABS: ALBUMIN 2.7 g/dL (3.5-5.0); TOTAL PROTEIN, SERUM 6.5 g/dL (6.0-8.3)
[2022-09-07 12:31] LABS: ALBUMIN,BODY FLUID 0.2 g/dL
[2022-09-07 13:32] LABS: APPEARANCE BODY FLUID CLEAR (CLEAR); BODY FLUID RBC 270 /cu. mm.; BODY FLUID WBC 12 /cu. mm.; COLOR,BODY FLUID YELLOW (LT YELLOW); SPECIMENTYPE,BODY FLUID ASCITES
[2022-09-07 13:33] LABS: TOTAL VOLUME,BODY FLUID 7500 mL
[2022-09-07 13:36] LABS: BF LYMPHOCYTE 54 %; BF MESOTHELIAL 41 %; BF MONOCYTE 2 %
== END | disposition home or self-care (01) ==
LOC: RAH 08:08
PROVIDERS: ATTEND Internal Medicine Gastroenterology
DX: R18.8 Other ascites (principal); D50.9 Iron deficiency anemia, unspecified; Z79.01 Long term (current) use of anticoagulants; Z86.010 Personal history of colon polyps; Z72.89 Other problems related to lifestyle; Z98.890 Other specified postprocedural states; Z79.899 Other long term (current) drug therapy
CPT/HCPCS: 49083; 84157; 80053; 85025; 89051; 85610; 85730; 87071; 87076; 87205; 82042; 36415; 88108; 88305; C1729; 96365